=== PATIENT | female | born 1945 | race Caucasian/White ===

== ENCOUNTER 2023-12-16 07:52 | Emergency (ER) | payer MEDICARE, SELFPAY ==
[2023-12-16 07:52] VITALS: BMI 26.4
[2023-12-16 07:56] VITALS: BP 138/62
--- NOTE | 2023-12-16 08:29 | ED.GENMED ---
History of Present Illness
General
Chief Complaint: Cold/Flu/URI Symptoms
Source: patient
Exam Limitations: none
Time Seen by Provider: 12/16/23 08:13
Travel History
Have you had any contact with someone who has COVID-19?: No
Do you have any symptoms of coronavirus? Fever > 100 degrees, chills, cough, shortness of breath, sore throat, loss of taste or smell, muscle aches, or headache?: Yes
Symptoms:: cough fever
History of Present Illness
History of Present Illness:
78-year-old female with history of psoriasis on methotrexate, bladder cancer, hypertension presents complaining of 6 days worth of intermittent fatigue fevers cough ear pain sore throat. She is currently on 3 mg of methotrexate. She notes in the
morning she has to vomit up phlegm. She denies abdominal pain. She denies a rash. No known sick contacts. No other complaints at this time
Past History
Past History
ED Past Medical History: GERD, HTN, Hypercholesterolemia and Other (Psoriasis, irritable bowel syndrome)
ED Past Surgical History: Gynecological
Social History
Tobacco: Non-smoker
Phy Exam
Physical Exam
Physical Exam:
General: Well-appearing female no acute respiratory distress
HEENT: Normocephalic atraumatic posterior pharynx without erythema neck is supple. Right TM normal left TM erythematous with fluid. The medial part of the external auditory canal slightly erythematous as well
Heart: Regular rate and rhythm no murmurs
Lungs: Clear no wheeze or rales
Abdomen soft nontender nondistended no guarding rebound normal bowel sounds
Extremities: No cyanosis or edema
Skin is warm no rash
Course
Orders/Labs/Results
Orders:
Orders
12/16/23 08:26
CR Chest - 2 Views Urgent
Comment:
Reason For Exam: fever, cough
12/16/23 08:31
Acetaminophen [Tylenol] 650 mg PO NOW STA
12/16/23 09:24
COVID-19 Antigen Urgent
Source: Nasal Swab
Influenza A+B Rapid Molecular Urgent
[facility] Source: Nasal Swab
Specimen Description:
12/16/23 09:32
Complete Blood Count/With Diff Urgent
Comprehensive Metabolic Panel Urgent
Lactic Acid Q4H
Comment: CANCEL 2nd LACTIC ACID IF 1st LACTIC ACID IS LESS THAN 2
Blood Culture Q30M
[facility] Source: Blood/Venous
Specimen Description:
Blood Culture Q30M
[facility] Source: Blood/Venous
Specimen Description:
12/16/23 12:30
Lactic Acid Q4H
Comment: CANCEL 2nd LACTIC ACID IF 1st LACTIC ACID IS LESS THAN 2
Abnormal Lab Results
12/16/23
09:32
WBC 15.6 H 10^3/uL
(4.8-10.8)
RBC 3.24 L 10^6/uL
(4.20-5.40)
Hgb 10.3 L g/dL
(12.0-16.0)
Hct 30.0 L %
(37.0-47.0)
MCH 31.8 H pg
(27.0-31.0)
MPV 10.6 H fL
(7.4-10.4)
Abs Immat Gran (auto) 0.1 H 10^3/uL
(0-0.05)
Absolute Neuts (auto) 12.5 H 10^3/uL
(1.4-6.5)
Absolute Monos (auto) 1.4 H 10^3/uL
(0.1-0.6)
Immature Gran % 0.7 H %
(0-0.5)
Neutrophils % 79.7 H %
(42.2-75.2)
Lymphocytes % 9.8 L %
(20.5-51.1)
Carbon Dioxide 21 L mmol/L
(22-30)
BUN 35 H mg/dl
(7-17)
Creatinine 1.1 H mg/dL
(0.6-1.0)
Glucose 129 H mg/dl
(70-99)
12/16/23 09:32
12/16/23 09:32
Vital Signs
Initial and Last Documented VS:
Initial Vital Signs
Temp Pulse Resp BP Pulse Ox
100.5 F H 100 20 138/62 98
12/16/23 07:56 12/16/23 07:56 12/16/23 07:56 12/16/23 07:56 12/16/23 07:56
Last Documented Vital Signs
Temp Pulse Resp BP Pulse Ox
100.5 F H 82 28 117/54 92
12/16/23 07:56 12/16/23 10:00 12/16/23 10:00 12/16/23 10:00 12/16/23 10:00
MDM/Problems Addressed
Differential Diagnosis Includes:
Fever URI symptoms. Patient could have viral illness such as COVID or flu these tests are pending. She notes a cough. Check chest x-ray for pneumonia.
I reviewed prior records. She is on methotrexate for history of psoriasis. This complicates care she could be immunosuppressed.
*Critical Care Note
Total Time (30-74mins, 75-104mins- exclusive of procedures): Not Applicable
Update Note
Update Note:
Exam consistent with otitis media workup negative for COVID and flu but does demonstrate subtle early pneumonia in the left perihilar region. When awake patient's oxygen level as well. She drops to 91 or 92% while sleeping. White blood cell count
is elevated. Discussed with emergency room attending and had shared decision-making with the patient and regarding definitive treatment. Offered admission versus discharge with close follow-up if need be. Patient decided to go home. Will
initiate Augmentin for her pneumonia and otitis. Return precautions were given.
ED Attending Note
-
Portions of this chart may have been created with voice recognition software.� Occasional wrong word or��sound alike� substitutions may have occurred due to the inherent limitations of voice recognition software.
Discharge Plan
Departure
Patient Disposition: Home (Routine Discharge)
Date of Disposition: 12/16/23
Time of Disposition: 10:22
Patient with high blood pressure during this ER visit?: No
Discharge Problem:
Pneumonia
Instructions: Pneumonia
Prescriptions:
New
amoxicillin-pot clavulanate 875-125 mg tablet
1 tab PO BID Qty: 19 0RF
No Action
isosorbide dinitrate 10 MG tablet
10 mg PO BID
simvastatin 40 MG tablet
40 mg PO DAILY
methotrexate sodium 2.5 MG tablet
6 tab PO .TUES
levothyroxine 50 MCG tablet
50 mcg PO DAILY
folic acid 1 MG tablet
1 mg PO DAILY
esomeprazole magnesium [Nexium] 20 MG capsule,delayed release(DR/EC)
20 mg PO DAILY
olmesartan-hydrochlorothiazide 1 EACH tablet
1 ea PO DAILY
metoprolol tartrate 25 MG tablet
25 mg PO DAILY
oxycodone 10 MG tablet
5 mg PO Q8HPRN PRN (Reason: pain)
Cholecalciferol (Vitamin D3) [Vitamin D3] 50 MCG Capsule
50 mcg PO DAILY
cephalexin 500 MG capsule
500 mg PO QID 5 Days Qty: 19 0RF
aspirin 81 MG tablet,chewable
81 mg PO DAILY Qty: 0 0RF
Rx Instructions:
RESTART ON 01/09/22
amoxicillin-pot clavulanate 875-125 mg tablet
1 tab PO BID Qty: 14 0RF
Referrals:
NONE,* [Family Provider] -
Activity Restrictions/Additional Instructions:
Take antibiotic as directed. Please return here for any worsening symptoms, persistent fever increasing shortness of breath. Follow-up with family doctor otherwise
Interventions
Interventions:
*Risk Screen - Suicide Last Done: 12/16/23 07:56
*General Assessment Last Done: 12/16/23 07:56
*Neglect/Abuse Screening Last Done: 12/16/23 07:56
ED- Pulmonary Assessment Last Done: 12/16/23 10:04
Discharge Date and Time
Print Language: MAORI
[2023-12-16 09:35] VITALS: BP 121/49
[2023-12-16] MEDS: TYLENOL 650 MG PO (09:50)
[2023-12-16 10:00] VITALS: BP 117/54
[2023-12-16 10:00] LABS: Lactic Acid 0.8 mmol/L (0.7-2.0)
[2023-12-16 10:01] LABS: ALT (SGPT) 16 U/L (0-35); AST (SGOT) 22 U/L (14-36); Alkaline Phosphatase 99 U/L (38-126); Blood Urea Nitrogen 35 mg/dl (7-17); Calcium 9.4 mg/dl (8.4-10.2); Carbon Dioxide 21 mmol/L (22-30); Chloride 106 mmol/L (98-107); Estimated Creatinine Clearance 34 ml/min; Glucose 129 mg/dl (70-99); Potassium 3.8 mmol/L (3.5-5.1); Sodium 140 mmol/L (135-145); Total Bilirubin 1.1 mg/dl (0.2-1.3); Total Protein 6.5 g/dl (6.3-8.2)
[2023-12-16 10:02] LABS: % Basophils 0.4 % (0-2); % Eosinophils 0.4 % (0-6); % Immature Granulocytes 0.7 % (0-0.5); % Lymphocytes 9.8 % (20.5-51.1); % Neutrophils 79.7 % (42.2-75.2); Absolute Basophils 0.1 10^3/uL (0-0.2); Absolute Eosinophils 0.1 10^3/uL (0-0.7); Absolute Immature Granulocytes 0.1 10^3/uL (0-0.05); Absolute Lymphocytes 1.5 10^3/uL (1.2-3.4); Absolute Monocytes 1.4 10^3/uL (0.1-0.6); Absolute Neutrophils 12.5 10^3/uL (1.4-6.5); Hemoglobin 10.3 g/dL (12.0-16.0); Mean Corp Hgb Conc. 34.3 g/dL (33.0-37.0); Mean Corpuscular Hgb 31.8 pg (27.0-31.0); Mean Corpuscular Volume 92.6 fL (81.0-99.0); Mean Platelet Volume 10.6 fL (7.4-10.4); Nucleated Red Blood Cells % 0 %; Platelet Count 193 10^3/uL (130-400); Red Blood Cell Count 3.24 10^6/uL (4.20-5.40); Red Cell Dist. Width 14.1 % (11.5-14.5); White Blood Cell Count 15.6 10^3/uL (4.8-10.8)
[2023-12-16 10:03] LABS: COVID-19 Antigen Negative (Negative)
[2023-12-16] MEDS: AUGMENTIN 875 MG/125 MG 1 TABLET PO (10:52)
== END 2023-12-16 10:59 | disposition home or self-care (01) ==
LOC: EMR 07:52
PROVIDERS: Physician Assistant; EMERGENCY PHYSICIAN Emergency Medicine
DX: J18.9 Pneumonia, unspecified organism (principal); I10 Essential (primary) hypertension
CPT/HCPCS: 99284; 71046; 80053; 83605; 85025; 87040; 87502; 87811

== ENCOUNTER 2024-05-01 12:43 | Emergency (ER) | payer MEDICARE, SELFPAY ==
[2024-05-01 12:51] VITALS: BP 141/71
--- NOTE | 2024-05-01 15:02 | ED.GENMED ---
History of Present Illness
General
Chief Complaint: Musculo-Skeletal Complaint
Source: patient and spouse
Exam Limitations: none
Time Seen by Provider: 05/01/24 13:19
Nursing documentation reviewed up to this point in time: agreed with
History of Present Illness
History of Present Illness:
Patient is an 78-year-old female with history of psoriatic arthritis presenting to the emergency department for evaluation of right knee injury. Patient states approximately 2 weeks ago she was on her hands and knees cleaning the floor. She was
scooting backwards on the floor and she felt a pop in her right knee. Immediately following�she had significant pain in her right knee and states that her knee was swollen. She tried ice, elevation, Tylenol at home which initially seemed to be
improving pain and swelling. She states that over the past few days pain has persisted and is worse at night. Patient denies any repeat injuries to her right knee.
Patient denies any numbness/tingling in right lower extremity.
No other concerns today.
Past History
Past History
ED Past Medical History: GERD, HTN, Hypercholesterolemia and Other (Psoriasis, irritable bowel syndrome)
ED Past Surgical History: Gynecological
Social History
Tobacco: Non-smoker
Review of Systems
Review of Systems
Allergies reviewed?: Yes
All Other Systems: ROS reviewed and negative except as documented in HPI and ROS
Phy Exam
Physical Exam
Physical Exam:
Vitals: Patient's vital signs are stable. Afebrile
General: Patient is well appearing, no acute distress
Skin: Warm and dry, no rashes or lesions
Head: Normocephalic, atraumatic
Throat: Protecting airway
Neck: Normal ROM, no cervical spine tenderness
Cardiac: Regular rate
Pulm: No apparent respiratory distress
Abdomen: Nondistended
Extremities: Medial joint line tenderness of right knee. Mild tenderness of proximal tibia just below knee with no overlying erythema or ecchymoses. No right knee effusion. Patient is full ability to flex and extend right knee. Negative right
anterior drawer. No bony tenderness of right knee. Patient has no pain in bilateral hips with internal/external rotation.
Neuro: Grossly intact
Psychiatric: Normal affect.
Course
Orders/Labs/Results
Orders:
Orders
05/01/24 12:44
Knee, Right 4 or More Views [CR Knee- Right 4 Or More View*] Urgent
Comment:
Reason For Exam: pain
Vital Signs
Initial and Last Documented VS:
Initial Vital Signs
Temp Pulse Resp BP Pulse Ox
98.2 F 70 18 141/71 97
05/01/24 12:51 05/01/24 12:51 05/01/24 12:51 05/01/24 12:51 05/01/24 12:51
Last Documented Vital Signs
Temp Pulse Resp BP Pulse Ox
98.2 F 65 18 145/63 98
05/01/24 12:51 05/01/24 15:19 05/01/24 15:19 05/01/24 15:19 05/01/24 15:19
MDM/Problems Addressed
Differential Diagnosis Includes:
Not limited to: Knee strain, meniscal injury, patellar subluxation, doubt patellar fracture or tibial fracture
MDM/Problems Addressed:
78-year-old female presenting with right knee injury. Vital stable. Physical exam as above. X-ray with no evidence of acute fracture or dislocation. X-ray does show findings of osteoarthritis. Suspect symptoms likely related to ligamentous
injury of right knee and arthritis. Did consider knee immobilizer although feel patient will be at increased fall risk. Will place Azam wrap. Advise RICE. Patient ambulating without difficulty. Patient will follow-up with Ortho as she may need
further imaging. Return precautions discussed. Patient comfortable with plan. All questions answered. Case discussed with attending physician.
Chronic conditions affecting care:
Psoriatic arthritis, osteoarthritis
Acute Exacerbation and/or Progression of Chronic Illness:
N/A
*Radiology
Radiology exam reviewed: preliminary read by ED provider and radiology read reviewed
*Pulse Oximetry
Patient hypoxic: no
*EKG
Interpreted by ED Provider?: NA
*Shut Off Worker Interpretation
Rate: Shut Off Worker- N/A
*Critical Care Note
Total Time (30-74mins, 75-104mins- exclusive of procedures): Not Applicable
ED Attending Note
-
Portions of this chart may have been created with voice recognition software.� Occasional wrong word or��sound alike� substitutions may have occurred due to the inherent limitations of voice recognition software.
Discharge Plan
Departure
Patient Disposition: Home (Routine Discharge)
Date of Disposition: 05/01/24
Time of Disposition: 14:54
Patient with high blood pressure during this ER visit?: Yes
Condition: Good
Covid-19: Not Applicable
Discharge Problem:
Injury of ligament of right knee
Instructions: Ligament Injuries in the Knee (DC)
Prescriptions:
No Action
isosorbide dinitrate 10 MG tablet
10 mg PO BID
simvastatin 40 MG tablet
40 mg PO DAILY
methotrexate sodium 2.5 MG tablet
6 tab PO .TUES
levothyroxine 50 MCG tablet
50 mcg PO DAILY
folic acid 1 MG tablet
1 mg PO DAILY
esomeprazole magnesium [Nexium] 20 MG capsule,delayed release(DR/EC)
20 mg PO DAILY
olmesartan-hydrochlorothiazide 1 EACH tablet
1 ea PO DAILY
metoprolol tartrate 25 MG tablet
25 mg PO DAILY
oxycodone 10 MG tablet
5 mg PO Q8HPRN PRN (Reason: pain)
Cholecalciferol (Vitamin D3) [Vitamin D3] 50 MCG Capsule
50 mcg PO DAILY
cephalexin 500 MG capsule
500 mg PO QID 5 Days Qty: 19 0RF
aspirin 81 MG tablet,chewable
81 mg PO DAILY Qty: 0 0RF
Rx Instructions:
RESTART ON 01/09/22
amoxicillin-pot clavulanate 875-125 mg tablet
1 tab PO BID Qty: 14 0RF
amoxicillin-pot clavulanate 875-125 mg tablet
1 tab PO BID Qty: 19 0RF
Referrals:
Maximo Clay MD [Active] - Next open appointment
Oksana Rosado PA-C [Family Provider] - Follow up in 2-3 days
Activity Restrictions/Additional Instructions:
RETURN TO THE EMERGENCY DEPARTMENT WITH SIGNIFICANT SWELLING/BRUISING OF RIGHT KNEE, INTRACTABLE PAIN IN RIGHT KNEE, NUMBNESS/TINGLING IN RIGHT LOWER EXTREMITY, WORSENING IN CURRENT SYMPTOMS, OR ANY OTHER CONCERNS
-As discussed�you should keep right knee wrapped with Azam bandage. It is very important to ice and elevate right knee as often as possible. You can take Tylenol as needed for any discomfort. Limit activities that further aggravate right knee pain.
-You should follow-up with orthopedics for further evaluation/management. You may require additional imaging. You can contact your primary care for further evaluation, as well
Monitor your symptoms closely and return to the emergency department with any acute worsening/new symptoms
Interventions
Interventions:
*Risk Screen - Suicide Last Done: 05/01/24 13:10
*General Assessment Last Done: 05/01/24 13:10
*Neglect/Abuse Screening Last Done: 05/01/24 13:10
*ED COVID-19 Vaccine History Last Done: 05/01/24 13:10
*Nursing Disposition Last Done: 05/01/24 15:19
ED-Musculoskeletal Assessment Last Done: 05/01/24 13:10
Discharge Date and Time
Discharge Date/Time: 05/01/24 15:20
Print Language: LEBANESE
[2024-05-01 15:19] VITALS: BP 145/63
== END 2024-05-01 15:20 | disposition home or self-care (01) ==
LOC: EMR 12:43
PROVIDERS: EMERGENCY PHYSICIAN Student in an Organized Health Care Education/Training Program; FAMILY PHYSICIAN Physician Assistant
DX: S89.91XA Unspecified injury of right lower leg, initial encounter (principal); X50.1XXA Overexertion from prolonged static or awkward postures, initial encounter; I10 Essential (primary) hypertension
CPT/HCPCS: 99283; 73564

== ENCOUNTER → 2024-09-13 10:29 | Outpatient (REF) | payer MEDICARE, SELFPAY | LOC: RAD 10:29 | PROVIDERS: ATTENDING PHYSICIAN Internal Medicine; FAMILY PHYSICIAN Physician Assistant | DX: M81.0 Age-related osteoporosis without current pathological fracture (principal) | CPT/HCPCS: 77080; 77081 ==

== ENCOUNTER 2025-03-03 13:33 | Inpatient (IN) | payer MEDICARE, SELFPAY ==
[2025-03-02 14:28] VITALS: BP 152/80
[2025-03-02 14:43] LABS: Hematocrit 33.4 % (37.0-47.0); Hemoglobin 11.2 g/dL (12.0-16.0); Mean Corp Hgb Conc. 33.5 g/dL (33.0-37.0); Mean Corpuscular Volume 97.7 fL (81.0-99.0); Nucleated Red Blood Cells % 0 %; Platelet Count 192 10^3/uL (130-400); Red Cell Dist. Width 14.6 % (11.5-14.5)
--- NOTE | 2025-03-02 15:00 | ED.GENMED ---
History of Present Illness
General
Chief Complaint: Chest Pain
Time Seen by Provider: 03/02/25 14:50
Nursing documentation reviewed up to this point in time: agreed with
History of Present Illness
History of Present Illness:
79-year-old female presents to the ER for evaluation of feeling of shortness of breath along with pressure on her chest which has been present for the last week. Patient feels as though she cannot fully exhale. She also has noted more swelling
around her upper chest/neck in the last week or so although she believes it was related to positioning while sleeping. Patient denies fevers or chills. She has been eating and drinking without difficulty although she states that most food tastes
terrible recently. She denies peripheral edema. She states that she was recently taken off of her Plavix but no other recent change in her medications. Patient had an AR evaluated with cath within the last year but was reportedly in a vessel that
was not amenable to direct treatment. She had medication modification and has been compliant with her medicines. She denies prior personal history of congestive heart failure. She has not had any cough or cold symptoms. She is on long-term
methotrexate for her prior history of psoriasis. She also has a prior significant history of hypertension and GERD
Past History
Past History
ED Past Medical History: GERD, HTN, Hypercholesterolemia and Other (Psoriasis, irritable bowel syndrome)
ED Past Surgical History: Gynecological
Social History
Tobacco: Non-smoker
Review of Systems
Review of Systems
Allergies reviewed?: Yes
Phy Exam
Physical Exam
Physical Exam:
Patient is awake, alert, appears in no acute distress, generally tremulous, elderly, significant supraclavicular fat pads present bilaterally, no appreciable JVD given limitations of habitus, heart regular rate and rhythm without murmurs or ectopy,
lungs are clear to auscultation without wheezes rales or rhonchi, no crepitus or abnormal chest wall excursion noted, abdomen is soft, obese, nontender, extremities without edema, 2+ DP pulses present symmetric bilateral feet, GCS is 15
Scores
Heart Score for Chest Pain Patients
STEMI patient?: No
History: Moderately Suspicious
ECG: Normal
Age: >/= 65 years
Risk Factors: >/= 3 Risk Factors or History of CAD
Troponin: >1 - <3 x Normal Limit
Heart Score for Chest Pain Patients: 6
Heart Score Risk: 20.3% MACE over next 6 weeks
Course
Orders/Labs/Results
Orders:
Orders
03/02/25 14:25
Electrocardiogram (*1) Urgent
Reason for Study: Chest Pain
EKG- Treatment ONCE
03/02/25 14:36
Complete Blood Count/With Diff Urgent
Comprehensive Metabolic Panel Urgent
Pro-BNP [NT-proBNP] Urgent
Troponin I Urgent
03/02/25 14:53
PT/INR [Prothrombin Time] Urgent
03/02/25 16:19
Aspirin 325 mg PO NOW STA
03/02/25 17:23
CR Chest - 2 Views Urgent
Comment:
Reason For Exam: dyspnea
Abnormal Lab Results
03/02/25
14:36
RBC 3.42 L 10^6/uL
(4.20-5.40)
Hgb 11.2 L g/dL
(12.0-16.0)
Hct 33.4 L %
(37.0-47.0)
MCH 32.7 H pg
(27.0-31.0)
RDW 14.6 H %
(11.5-14.5)
Abs Immat Gran (auto) 0.1 H 10^3/uL
(0-0.05)
Absolute Monos (auto) 0.7 H 10^3/uL
(0.1-0.6)
Immature Gran % 0.6 H %
(0-0.5)
Chloride 111 H mmol/L
(98-107)
BUN 31 H mg/dl
(7-17)
Creatinine 1.3 H mg/dL
(0.6-1.0)
Glucose 123 H mg/dl
(70-99)
03/02/25 14:36
03/02/25 14:36
White blood count reassuring. Patient has history of anemia, today's hemoglobin is similar to prior from 12/16/2023
Vital Signs
Initial and Last Documented VS:
Initial Vital Signs
Temp Pulse Resp BP Pulse Ox
97.9 F 96 18 152/80 95
03/02/25 14:28 03/02/25 14:28 03/02/25 14:28 03/02/25 14:28 03/02/25 14:28
Last Documented Vital Signs
Temp Pulse Resp BP Pulse Ox
97.9 F 102 26 152/80 95
03/02/25 14:28 03/02/25 17:00 03/02/25 17:00 03/02/25 14:28 03/02/25 17:00
MDM/Problems Addressed
Differential Diagnosis Includes:
Differential diagnosis considered but not limited to angina with dyspnea as an anginal equivalent, CHF, pneumonia, anemia, arrhythmia along with other etiologies considered
Chronic conditions affecting care:
Psoriasis on immune modulating medication, hypertension, ACS
*Pulse Oximetry
SaO2: 96
Oxygen Mode of Delivery: Room air
Patient hypoxic: no
*EKG
Interpreted by ED Provider?: Yes (I did been reviewed and interpreted full EKG showing normal sinus rhythm, rate 97, left axis deviation, right bundle branch block, no ST elevation, this is an abnormal tracing, with new bundle branch block compared
to prior from 04/18/2023)
*Police Dispatcher Interpretation
Rate: normal (I independently viewed and interpreted rhythm strip showing normal sinus rhythm with right bundle branch block)
*Critical Care Note
Total Time (30-74mins, 75-104mins- exclusive of procedures): Not Applicable
Update Note
Update Note:
Patient given aspirin as dyspnea may be related to anginal equivalent. Troponin is slightly elevated. Labs otherwise are normal. I reviewed full patient presentation with the hospitalist accepts patient for admission for further ACS evaluation.
Chest x-ray was not ordered with initial workup. It has been ordered
ED Attending Note
-
Portions of this chart may have been created with voice recognition software.� Occasional wrong word or��sound alike� substitutions may have occurred due to the inherent limitations of voice recognition software.
Discharge Plan
Departure
Patient Disposition: Admit
Date of Disposition: 03/02/25
Time of Disposition: 16:34
Presentation/result/management discussed w/ accepting MD/DO: Hospitalist
Discharge Problem:
Elevated troponin I level, Dyspnea
Prescriptions:
No Action
simvastatin 40 MG tablet
40 mg PO DAILY
methotrexate sodium 2.5 MG tablet
6 tab PO .TUES
levothyroxine 50 MCG tablet
50 mcg PO DAILY
folic acid 1 MG tablet
1 mg PO DAILY
esomeprazole magnesium [Nexium] 20 MG capsule,delayed release(DR/EC)
20 mg PO DAILY
olmesartan-hydrochlorothiazide 1 EACH tablet
1 ea PO DAILY
metoprolol tartrate 25 MG tablet
25 mg PO DAILY
Cholecalciferol (Vitamin D3) [Vitamin D3] 50 MCG Capsule
50 mcg PO DAILY
aspirin 81 MG tablet,chewable
81 mg PO DAILY Qty: 0 0RF
Rx Instructions:
RESTART ON 01/09/22
isosorbide mononitrate 30 mg Tablet Extended Release 24 Hr
30 mg PO DAILY
Simponi 50 mg/0.5 mL Pen Injector
50 mg SC ORDERED RATE
Rx Instructions:
every 8 weeks
Referrals:
Oksana Rosado PA-C [Family Provider, Family Practice]
Interventions
Interventions:
*Risk Screen - Suicide Last Done: 03/02/25 14:28
*General Assessment Last Done: 03/02/25 14:28
*Neglect/Abuse Screening Last Done: 03/02/25 14:28
ED- Cardiac Assessment Last Done: 03/02/25 14:56
Discharge Date and Time
Print Language: ICELANDIC
[2025-03-02 15:10] LABS: ALT (SGPT) 28 U/L (0-35); AST (SGOT) 25 U/L (14-36); Albumin 4.5 g/dl (3.5-5.0); Alkaline Phosphatase 116 U/L (38-126); Blood Urea Nitrogen 31 mg/dl (7-17); Calcium 9.7 mg/dl (8.4-10.2); Carbon Dioxide 24 mmol/L (22-30); Chloride 111 mmol/L (98-107); Glucose 123 mg/dl (70-99); Potassium 4.1 mmol/L (3.5-5.1); Sodium 141 mmol/L (135-145); Total Protein 6.6 g/dl (6.3-8.2); eGFR 41.31
[2025-03-02 15:11] LABS: INR 1.00; PT 13.5 Sec (11.4-14.6)
[2025-03-02 15:21] LABS: Troponin I 0.025 ng/ml
[2025-03-02] MEDS: ASPIRIN 325 MG PO (16:32)
--- NOTE | 2025-03-02 17:29 | HPS.HSE ---
Family Physician
-
Family Physician: Oksana Rosado PA-C
Chief Complaint
-
Chest Pain
History of Present Illness
Patient is an 79 y/o female past medical history of coronary artery disease s/p stent, hypertension, hyperlipidemia, hypothyroidism, and psoriasis who presents with chest pain. Patient described an almost constant chest tightness for the past week.
She reports symptoms improve with rest but get significantly with activity. She reports increased dysnpea on exertion from her prior baseline. She notes sometimes the tightness radiates to the left shoulder. She currently takes low dose aspirin
and notes her Plavix was stopped about 3 months ago. She reports prior cardiac last year showed an occluded vessel that was too small to stent, and notes they are watching two other vessels that has stenosis but significant enough at that time to
warrant stenting.
Medical History
Past Medical History
Past Medical History: Reports Other
Additional Past Medical History:
Coronary Artery Disease s/p Stent
Essential Hypertension
Hyperlipidemia
Hypothyroidism
GERD
Irritable Bowel Syndrome
Plaque Psoriasis / Psoriatic Arthritis
Bladder Cancer s/p TURBT
Past Surgical History: Reports Other
Additional Past Surgical History:
Cardiac Stents
TURBT
Hysterectomy
Nasal Surgery
Ear Surgery
Social History
Tobacco: Former Smoker (Quit in 2010)
Alcohol: Occasional
Family History
Family History: Not pertinent
Allergies / Home Medications
Allergies reflects when Allergies were last updated in [employer].
Home Medications with original date entered in [employer]
Allergy/Medication List:
Allergies
Allergy/AdvReac Type Severity Reaction Status Date / Time
Iodinated Contrast Media Allergy Rash Verified 03/02/25 14:28
Home Medications
Cholecalciferol (Vitamin D3) [Vitamin D3] 50 mcg PO DAILY Supplement 12/31/21
esomeprazole magnesium 20 mg capsule,delayed release (Nexium) 20 mg PO DAILY Gastrointestinal issue 12/31/21
folic acid 1 mg tablet 1 mg PO DAILY Supplement 12/31/21
levothyroxine 50 mcg tablet 50 mcg PO DAILY Thyroid 12/31/21
methotrexate sodium 2.5 mg tablet 4 tab PO TU Autoimmune disorder 12/31/21
aspirin 81 mg chewable tablet 81 mg PO DAILY Blood clot prevention/tx ##0 01/05/22
atorvastatin 40 mg tablet 40 mg PO DAILY 03/02/25
golimumab 50 mg/0.5 mL subcutaneous pen injector (Simponi) 50 mg SC ORDERED RATE 03/02/25
isosorbide mononitrate 30 mg tablet,extended release 24 hr 30 mg PO DAILY DAILY 03/02/25
metoprolol succinate 25 mg tablet,extended release 24 hr 25 mg PO DAILY 03/02/25
olmesartan 20 mg-hydrochlorothiazide 12.5 mg tablet 1 tab PO DAILY 03/02/25
Review of Systems
-
A 12 point ROS was completed and negative except as noted: Yes
Constitutional: Denies Fever or Chills
Respiratory: Reports Trouble Breathing; Denies Cough
Cardiac: Reports See HPI
Abdomen/GI: Denies Abdominal Pain, Nausea or Vomiting
Physical Exam
Vital Signs
Vital Signs
Temp Pulse Resp BP Pulse Ox
97.9 F 102 26 152/80 95
03/02/25 14:28 03/02/25 17:00 03/02/25 17:00 03/02/25 14:28 03/02/25 17:00
Physical Exam
General: Comfortable and Conversant
HEENT: Anicteric and Moist mucous membranes
Respiratory: Clear and Non Labored Respirations
Cardiac: S1/S2 and Regular Rhythm
GI: Soft and Non Tender
Rectal: Deferred by Provider
Musculoskeletal: No Clubbing, No Cyanosis and No Edema
Skin: Warm and Dry
Neuro: Awake, Alert, Oriented and Nonfocal/grossly intact
Psych: Calm
Laboratory Results
-
08/03/25 14:36
03/02/25 14:36
Laboratory Results
PT 13.5 Sec (11.4-14.6) 03/02/25 14:53
INR 1.00 03/02/25 14:53
Total Bilirubin 1.0 mg/dl (0.2-1.3) 03/02/25 14:36
AST 25 U/L (14-36) 03/02/25 14:36
ALT 28 U/L (0-35) 03/02/25 14:36
Alkaline Phosphatase 116 U/L (38-126) 03/02/25 14:36
Troponin I 0.025 ng/ml 03/02/25 14:36
Data Reviewed
-
Lab Data: Labs Reviewed by me
Old Records: Reviewed
Impression/Plan
-
Chest Pain, patient is high risk given known coronary artery disease
-Consult Cardiology
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
-Continue aspirin
-Give dose of nitroglycerin SL now and monitor for response
-Continue to trend troponin and check serial ECG
Elevated Creatinine, unclear if acute vs chronic, but suspect more chronic
-Hold olmesartan / HCTZ for now
-Recheck creatinine in AM
Essential Hypertension
-Continue metoprolol
-Olmesartan / HCTZ on hold as above
Hyperlipidemia
-Continue atorvastatin
Hypothyroidism
-Continue levothyroxine
GERD
-Continue Protonix
Plaque Psoriasis / Psoriatic Arthritis
-Patient maintained on methotrexate and golimumab as outpatient
Hx Bladder Cancer s/p TURBT
DVT proph: SC Heparin
Code Status: Full Code
[2025-03-02 18:15] VITALS: BP 158/60
[2025-03-02 19:00] VITALS: BP 152/64
[2025-03-02 19:30] VITALS: BP 163/75; BMI 29.7
--- NOTE | 2025-03-02 19:33 | W.PN.UPDATE ---
Update Note
Progress Note Update
Patient seen independently.
Please see the PA note for full details
79 y/o woman with a past medical history of:
coronary artery disease s/p stent,
hypertension,
hyperlipidemia,
hypothyroidism,
psoriasis
presents with chest pain. She describes it as an almost constant chest tightness for the past week. The symptoms improve with rest but get significantly worse with activity. She has increased dyspnea on exertion from baseline. The tightness
radiates to the left shoulder. She takes low dose aspirin and her Plavix was stopped 3 months ago. A cardiac cath last year showed an occluded vessel that was too small to stent, and two other vessels had stenosis but not significant enough at
that time to warrant stenting.
Past Medical History
Coronary Artery Disease s/p Stent
Essential Hypertension
Hyperlipidemia
Hypothyroidism
GERD
Irritable Bowel Syndrome
Plaque Psoriasis / Psoriatic Arthritis
Bladder Cancer s/p TURBT
Cardiac Stents
TURBT
Hysterectomy
Nasal Surgery
Ear Surgery
Physical Exam
General: Comfortable
Respiratory: Clear
Cardiac: S1/S2
GI: Soft
Skin: Warm
Neuro: Awake, Alert
Psych: Calm
Impression/Plan
1. Chest Pain, with known coronary artery disease
Consult Cardiology
aspirin
nitroglycerin SL
troponin and serial ECG
2. Elevated Creatinine, unclear if acute vs chronic
Hold olmesartan / HCTZ
Recheck creatinine in AM
See PA note for full details on:
Essential Hypertension
Hyperlipidemia
Hypothyroidism
GERD
Plaque Psoriasis / Psoriatic Arthritis
[2025-03-02 22:12] LABS: Troponin I 0.046 ng/ml
[2025-03-02 23:00] VITALS: BP 145/92
[2025-03-02] MEDS: HEPARIN 5000 UNITS SC (23:56)
[2025-03-03] VITALS (15 sets, daily range): BP systolic 100–156; BP diastolic 56–80; BMI 29.6
[2025-03-03] MEDS: NITROSTAT (SUBLINGUAL) 0.4 MG SL (00:35)
[2025-03-03 01:13] LABS: Troponin I 0.046 ng/ml
[2025-03-03] MEDS: SYNTHROID 50 MCG PO (05:39)
[2025-03-03 06:56] LABS: Hematocrit 31.7 % (37.0-47.0); Hemoglobin 10.4 g/dL (12.0-16.0); Mean Corp Hgb Conc. 32.8 g/dL (33.0-37.0); Mean Corpuscular Volume 99.1 fL (81.0-99.0); Platelet Count 162 10^3/uL (130-400); Red Cell Dist. Width 14.8 % (11.5-14.5)
[2025-03-03] MEDS: PROTONIX 40 MG PO (07:36)
[2025-03-03] MEDS: LOW STRENGTH ASPIRIN 81 MG PO (07:36)
[2025-03-03] MEDS: LIPITOR 40 MG PO (07:37)
[2025-03-03] MEDS: IMDUR (EXTENDED RELEASE) 30 MG PO (07:37)
[2025-03-03] MEDS: TOPROL XL 25 MG PO (07:37)
[2025-03-03] MEDS: HEPARIN 5000 UNITS SC (07:37)
[2025-03-03 07:55] LABS: Blood Urea Nitrogen 29 mg/dl (7-17); Calcium 9.5 mg/dl (8.4-10.2); Carbon Dioxide 25 mmol/L (22-30); Chloride 109 mmol/L (98-107); Estimated Creatinine Clearance 38 ml/min; Glucose 100 mg/dl (70-99); HDL Cholesterol 45 mg/dl; LDL Cholesterol, Calculated 38 mg/dl; Sodium 143 mmol/L (135-145); Very Low Density Lipoprotein 59 mg/dl (0-30); eGFR 50.48
[2025-03-03 08:01] LABS: Potassium 4.0 mmol/L (3.5-5.1)
--- NOTE | 2025-03-03 08:40 | CON.CAR ---
Addendum entered and electronically signed by Danie Shaw MD 03/03/25 16:55:
I personally performed a history and physical exam of the patient and discussed management with the resident. I reviewed the resident's note and agree with the documented findings and plan of care HPI/CC with changes/additions as note below.
79 yo female with PMH of CAD, prior stenting 2010, prior MT, HTN is admitted with SOB/JUAREZ. She also describes a chest burning that she attributes to GERD. Exam with RRR, no murmurs, no edema. TnI 0.046 (peak). EKG: NSR, RBBB. Echo: EF 55-60%.
Cath report from [facility] reviewed. 06/2023. 60% prox LAD, which was not significant by FFR. Culprit was likely distally occluded OM2 (med mgmt, small vessel size).
# ACS/NSTEMI
-concern that patient's presentation is due to ACS with known prior 60% LAD lesion
-threat to life
-currently chest pain free
-ASA 324mg, heparin drip, with monitoring of labs and tele
-will plan for cath in AM
# HTN
-chronic: continue Toprol XL, imdur
Original Note:
Consultation
Consultation Request
Date/Time Consultation Requested: 03/02/25
Date/Time Consultation Performed: 03/03/25
Medical History
-
Chief Complaint: Chest tightness
History of Present Illness:
Patient is a 89-year-old female, with past medical history of essential hypertension, hiatal hernia, GERD, coronary artery disease s/p stent x 2 in 2010, she was on dual antiplatelet therapy last year, her Plavix was discontinued 3 months ago who
presents to the ER with complaint of worsening shortness of breath and chest tightness. She states that she was not feeling well for the last week, her reflux symptoms were getting worse and she was waking up late at night with burnings in the
epigastric region. In addition, she was having exertional shortness of breath and generalized tremors of the whole body. Initially, she was able to treat the symptoms at home with rest and Nexium. On Monday, she went to taoist and when she came
back she had shortness of breath, chest tightness which was radiating to the neck and left shoulder and she had generalized shaking of the body and she was brought to the hospital by her .
She also had lower back pain for the last few months which had limited her physical activity and she feels like that might have contributed to her weight gain.
She does not have much appetite, denies nausea, vomiting, diaphoresis or syncopal episode.
No history of DVT/blood clots and has never been on blood thinners and has had no recent viral illness
She does have psoriasis for which she uses methotrexate and golimumab. She is on levothyroxine 50 mcg daily for hypothyroidism and on Nexium for GERD/hiatal hernia.
Past Medical History
Past Medical History: CAD (s/p stent), GERD, HTN, Hypercholesterolemia, Hypothyroidism and Other (Irritable Bowel Syndrome Plaque Psoriasis / Psoriatic Arthritis Bladder Cancer s/p TURBT)
Past Surgical History: Other (Cardiac Stents TURBT Hysterectomy Nasal Surgery Ear Surgery)
Social History
Tobacco: Former Smoker (Quit in 2010)
Alcohol: Occasional (She has 1 glass of wine with dinner daily)
Drug: None
Personal:
Living: With Family
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
Family History
Family History: Reviewed & Not Pertinent
Allergies / Home Medications
Allergy/AdvReac Type Severity Reaction Status Date / Time
Iodinated Contrast Media Allergy Rash Verified 03/02/25 14:28
�Medication �Instructions �Recorded �Confirmed �Type
Cholecalciferol (Vitamin D3) 50 mcg PO DAILY Supplement 12/31/21 03/02/25 History
[Vitamin D3]
esomeprazole magnesium 20 mg 20 mg PO DAILY Gastrointestinal 12/31/21 03/02/25 History
capsule,delayed release (Nexium) issue
folic acid 1 mg tablet 1 mg PO DAILY Supplement 12/31/21 03/02/25 History
levothyroxine 50 mcg tablet 50 mcg PO DAILY Thyroid 12/31/21 03/02/25 History
methotrexate sodium 2.5 mg tablet 4 tab PO TU Autoimmune disorder 12/31/21 03/02/25 History
aspirin 81 mg chewable tablet 81 mg PO DAILY Blood clot 01/05/22 03/02/25 Rx
prevention/tx ##0
atorvastatin 40 mg tablet 40 mg PO DAILY 03/02/25 03/02/25 History
golimumab 50 mg/0.5 mL 50 mg SC ORDERED RATE 03/02/25 03/02/25 History
subcutaneous pen injector (Simponi)
isosorbide mononitrate 30 mg 30 mg PO DAILY DAILY 03/02/25 03/02/25 History
tablet,extended release 24 hr
metoprolol succinate 25 mg 25 mg PO DAILY 03/02/25 03/02/25 History
tablet,extended release 24 hr
olmesartan 20 1 tab PO DAILY 03/02/25 03/02/25 History
mg-hydrochlorothiazide 12.5 mg
tablet
Review of Systems
-
All other systems: Negative unless noted
Physical Exam
Vital Signs
Temp Pulse Resp BP Pulse Ox
97.7 F 72 18 125/80 95
03/03/25 07:15 03/03/25 07:37 03/03/25 07:15 03/03/25 07:37 03/03/25 07:15
Lab Results
03/03/25 06:37
03/03/25 06:37
Troponin I 0.046 ng/ml H* 03/03/25 00:28
Kjm-L-Owtoawviqfp Pept 152 pg/ml 03/02/25 14:36
Physical Exam
General: Well Developed, Comfortable and Other (Generalized shaking of her hands)
HEENT: Anicteric and Moist Mucous Membranes
Respiratory: Wheezes (Scattered wheezes in chest)
Cardiac: S1/S2 and Regular Rhythm; Negative Murmur, Rub, Peripheral Edema or JVD
GI: Soft, Non Tender and Normal Bowel Sounds
Musculoskeletal: No Clubbing, No Cyanosis and No Edema
Skin: Warm and Dry
Neuro: Awake and AO x 3
Psych: Calm
Impression / Plan
-
Impression
Patient is an 79-year-old female, petite, with generalized shaking of hands and arms, history of coronary artery disease s/p stent x 2, on methotrexate for psoriasis, on levothyroxine for hypothyroidism admitted with chest tightness
Right middle branch block
Essential hypertension
GERD
Hyperlipidemia
Psoriasis
Hypothyroidism
Assessment/plan
Exertional shortness of breath most likely multifactorial secondary to general deconditioning, methotrexate use, could be related to thyroid issues, associated reflux symptoms
Check TSH
Continue pantoprazole 40 mg daily
LVH based on voltage criteria-check echocardiogram
PE less likely -Wells score is 0
Patient hemodynamically stable for an aortic dissection/aneurysm, can check chest CT to confirm
Troponin levels could be elevated due to mismatch-trending down
If echocardiogram is normal, can check stress echocardiography to confirm it to be noncardiac chest pain
Pulmonary function test on outpatient basis
--- NOTE | 2025-03-03 08:52 | W.PN.HOSP.TC ---
Today's Communication/Plan
-
npo after midnight for cardiac cath in am.
Assessment / Plan
Assessment / Plan
Impression:
Patient is an 79 y/o female past medical history of coronary artery disease s/p stent, hypertension, hyperlipidemia, hypothyroidism, and psoriasis who presents with chest pain. Patient described an almost constant chest tightness for the past week.
She reports symptoms improve with rest but get significantly with activity. She reports increased dysnpea on exertion from her prior baseline. She notes sometimes the tightness radiates to the left shoulder. She currently takes low dose aspirin
and notes her Plavix was stopped about 3 months ago. She reports prior cardiac last year showed an occluded vessel that was too small to stent, and notes they are watching two other vessels that has stenosis but significant enough at that time to
warrant stenting.
Admitted under hospitalist service.
Cardiology consulted.
Echocardiogram done shows:
Normal biventricular size and systolic function without regional wall motion
abnormality. Estimated LVEF 55-60%.
No significant valve disease.
Cardiology commending cardiac cath.
Assessment/plan:
Chest Pain, patient is high risk given known coronary artery disease
-Consult Cardiology
-troponin 0.046
-Continue aspirin
-Give dose of nitroglycerin SL now and monitor for response
- serial ECG
03/03
Echocardiogram done shows:
Normal biventricular size and systolic function without regional wall motion
abnormality. Estimated LVEF 55-60%.
No significant valve disease.
Cardiology commending cardiac cath in am.
CKD stage 3b
-Hold olmesartan / HCTZ for now
Essential Hypertension
-Continue metoprolol
-Olmesartan / HCTZ on hold as above
Hyperlipidemia
-Continue atorvastatin
Hypothyroidism
-Continue levothyroxine
GERD
-Continue Protonix
Plaque Psoriasis / Psoriatic Arthritis
-Patient maintained on methotrexate and golimumab as outpatient
CODE STATUS: Full code
DVT prophylaxis: Heparin drip
Diet: cardiac, npo after midnight.
Disposition: npo after midnight for cardiac cath in am.
Total time spent on today's encounter was 65 minutes which included time spent in counseling the patient/family regarding diagnosis and treatment plan as listed above, goals of care, and symptom management. Case was discussed with nursing staff,
specialists, and care coordinators/case management. All labs and imaging personally reviewed by me. Remainder the time spent in detailed review of previous records, lab data, imaging, and other medical provider documentation.
Anticipated Discharge: 24 - 48 hours
Subjective/Interval History
-
Date of Service: March 03, 2025
Patient seen and examined at bedside, denies any chest pain or shortness of breath, no abdominal pain, no nausea, no vomiting, no diarrhea or constipation.
Plan for cardiac cath tomorrow.
Objective Data
-
Labs:
Laboratory Results
03/03/25
06:37
WBC 6.0
Hgb 10.4 L
Hct 31.7 L
Plt Count 162
Sodium 143
Potassium 4.0
Chloride 109 H
Carbon Dioxide 25
BUN 29 H
Creatinine 1.1 H
Glucose 100 H
Calcium 9.5
Vital Signs:
Vital Signs
Temp Pulse Resp BP Pulse Ox
97.7 F 72 18 125/80 95
03/03/25 07:15 03/03/25 07:37 03/03/25 07:15 03/03/25 07:37 03/03/25 07:15
I&O
03/02/25 03/03/25 03/04/25
06:59 06:59 06:59
Intake Total 480 / 480
Balance 480 / 480
Physical Exam
-
General: Well Developed, Well Nourished, No Apparent Distress and Comfortable
HEENT: Normocephalic, Atraumatic, Moist Mucous Membranes, No Ptosis, PERRLA and Nose Appears Normal
Respiratory: Clear to Auscultation and Non Labored Respirations
Cardiac: Regular Rhythm and S1/S2
Breast: Deferred by me
GI: Soft, Nontender, Nondistended and Normal Bowel Sounds
Genito-urinary: No Costovertebral Tender
Musculoskeletal: No Clubbing, No Cyanosis and No Edema
Skin: Warm
Neuro: Awake, Alert, Oriented, AO x 3 and No Motor Deficits
Psych: Calm
Data Reviewed
-
Diagnostic Radiology: Image personally visualized and interpreted and Report Reviewed by me
CT Scan: Image personally visualized and interpreted and Report Reviewed by me
Ultrasound: Image personally visualized and interpreted and Report Reviewed by me
MRI: Image personally visualized and interpreted and Report Reviewed by me
Medical Tests (Nuc Med, Echo etc): Image personally visualized and interpreted and Report Reviewed by me
Labs: Labs Reviewed by me
Old Records: Reviewed
[2025-03-03 09:03] LABS: Glycohemoglobin (HgbA1c) 6.3 % (4.0-5.6)
[2025-03-03 09:34] LABS: Troponin I 0.033 ng/ml
--- NOTE | 2025-03-03 10:20 | CM ---
Patient seen at bedside
IA completed
LAINEZ form explained & signed. In chart
Lives with in rancher home, 1 step to enter
laundry room in basement
PLOF: independent
DME: [employer]
Has had [facility] in past & outpatient cardiac rehab in past at [place]
Denies insecurities
PCP: Oksana Rosado
Pharmacy: [facility], [address], [place]
PLAN: home, no needs anticipated when stable
[2025-03-03] MEDS: LOW STRENGTH ASPIRIN 243 MG PO (12:20)
[2025-03-03 12:31] LABS: Hematocrit 31.7 % (37.0-47.0); Hemoglobin 10.5 g/dL (12.0-16.0); Mean Corp Hgb Conc. 33.1 g/dL (33.0-37.0); Mean Corpuscular Volume 98.8 fL (81.0-99.0); Platelet Count 181 10^3/uL (130-400); Red Cell Dist. Width 14.7 % (11.5-14.5)
[2025-03-03 12:40] LABS: APTT 24.0 Sec (23.4-35.0)
[2025-03-03] MEDS: HEPARIN 25000 UNITS/250 ML IV (14:07)
[2025-03-03] MEDS: BENADRYL 50 MG IV (15:53)
[2025-03-03] MEDS: SOLU-CORTEF 100 MG IV (15:53)
[2025-03-03 16:59] LABS: ACT-LR - POC 221 Seconds (116-155)
--- NOTE | 2025-03-03 17:42 | ITS.CL.PN ---
Final Armature Tester - Procedure Note
Procedure
Procedure Note:
CARDIAC CATHETERIZATION REPORT
Date of Procedure: 03/03/2025
Referring: Dr. Barber Shaw MD, PhD
Indication: NSTEMI
PROCEDURE(S)
1. left heart catheterization
2. coronary angiography
3. iFR LAD
ACCESS: 6F right radial artery (closure: radial band)
CATHETERS
1. 6F JR4
2. 6F JL3.5
3. 6F EBU3.5 guide
MODERATE SEDATION: 40 minutes of moderate sedation was utilized. An independent hospital medical assistant was present to assist with and help manage the patient's level of consciousness and physiologic status.
HEMODYNAMIC DATA
LV 127/11 (EDP 18) mmHg
AO 124/62 (mean 90) mmHg
CORONARY ANGIOGRAPHY
Dominance: Right
LM: Cloacal vessel without disease.
LAD: Large vessel giving rise to two small diagonal branches and wrapping around the apex. There is a 50% focal ostial stenosis and eccentric 50% proximal vessel stenosis.
LCx: Large vessel giving rise to a moderate caliber ramus/OM1, small OM2, moderate caliber OM3, and moderate caliber LPL branch. There is long segment up to 50% disease in the distal circumflex after the OM3 leading into the LPL branch. There are
otherwise mild luminal irregularities only.
RCA: Large vessel giving rise to a small RPDA and small RPL branch. There is a patent stent in the distal vessel and diffuse mild disease.
iFR of LAD
An Omni wire was flushed and zeroed outside the body and then advanced to the left main. The wire introducer was removed and the catheter flushed with saline, after which pressure of the wire and guide were normalized. The wire was advanced to the
mid LAD and iFR recorded at 0.98. On return to the left main, iFR appropriately normalized to ~1.0, confirming lack of wire drift.
RADIATION: dose 663 mGy; DAP 48 Gy*cm2; fluoroscopy time 6.6 min
CONCLUSIONS
1. Nonobstructive coronary artery disease in right dominant system
2. Mildly elevated LV filling pressure and no aortic stenosis on hemodynamic pullback.
RECOMMENDATIONS
1. Aggressive secondary prevention of coronary artery disease
2. Workup for etiology of patient's troponin elevation, which represents either a type II NSTEMI or non-ischemic myocardial injury
Copy to: Dr. Gaetano Vera MD (varnisher); PRERNA Castellanos (PCP)
Signed: Hans Millard MD, PhD
[2025-03-04 03:00] VITALS: BP 147/75
[2025-03-04 04:34] VITALS: BMI 29.4
[2025-03-04 06:00] VITALS: BMI 29.4
[2025-03-04] MEDS: SYNTHROID 50 MCG PO (06:30)
[2025-03-04 07:00] VITALS: BP 158/86
[2025-03-04 08:14] LABS: Hematocrit 33.9 % (37.0-47.0); Hemoglobin 11.1 g/dL (12.0-16.0); Mean Corp Hgb Conc. 32.7 g/dL (33.0-37.0); Mean Corpuscular Volume 98.8 fL (81.0-99.0); Platelet Count 187 10^3/uL (130-400); Red Cell Dist. Width 14.7 % (11.5-14.5)
[2025-03-04] MEDS: IMDUR (EXTENDED RELEASE) 30 MG PO (08:25)
[2025-03-04] MEDS: PROTONIX 40 MG PO (08:25)
[2025-03-04] MEDS: TOPROL XL 25 MG PO (08:25)
[2025-03-04] MEDS: LIPITOR 40 MG PO (08:26)
[2025-03-04] MEDS: LOW STRENGTH ASPIRIN 81 MG PO (08:27)
[2025-03-04 09:12] LABS: Blood Urea Nitrogen 28 mg/dl (7-17); Calcium 10.1 mg/dl (8.4-10.2); Carbon Dioxide 23 mmol/L (22-30); Chloride 111 mmol/L (98-107); Estimated Creatinine Clearance 41 ml/min; Glucose 95 mg/dl (70-99); Potassium 3.9 mmol/L (3.5-5.1); Sodium 143 mmol/L (135-145); eGFR 56.60
--- NOTE | 2025-03-04 10:06 | W.PN.HOSP.TC ---
Today's Communication/Plan
-
DC home
Assessment / Plan
Assessment / Plan
Impression:
Patient is an 79 y/o female past medical history of coronary artery disease s/p stent, hypertension, hyperlipidemia, hypothyroidism, and psoriasis who presents with chest pain. Patient described an almost constant chest tightness for the past week.
She reports symptoms improve with rest but get significantly with activity. She reports increased dysnpea on exertion from her prior baseline. She notes sometimes the tightness radiates to the left shoulder. She currently takes low dose aspirin
and notes her Plavix was stopped about 3 months ago. She reports prior cardiac last year showed an occluded vessel that was too small to stent, and notes they are watching two other vessels that has stenosis but significant enough at that time to
warrant stenting.
Admitted under hospitalist service.
Cardiology consulted.
Echocardiogram done shows:
Normal biventricular size and systolic function without regional wall motion
abnormality. Estimated LVEF 55-60%.
No significant valve disease.
Cardiology commending cardiac cath which revealed:
CONCLUSIONS
1. Nonobstructive coronary artery disease in right dominant system
2. Mildly elevated LV filling pressure and no aortic stenosis on hemodynamic pullback.
RECOMMENDATIONS
1. Aggressive secondary prevention of coronary artery disease
2. Workup for etiology of patient's troponin elevation, which represents either a type II NSTEMI or non-ischemic myocardial injury.
Assessment/plan:
Chest Pain, patient is high risk given known coronary artery disease
-Consult Cardiology
-troponin 0.046
-Continue aspirin
-Give dose of nitroglycerin SL now and monitor for response
- serial ECG
03/03
Echocardiogram done shows:
Normal biventricular size and systolic function without regional wall motion
abnormality. Estimated LVEF 55-60%.
No significant valve disease.
Cardiology commending cardiac cath.
03/04
Cardiology commending cardiac cath which revealed:
CONCLUSIONS
1. Nonobstructive coronary artery disease in right dominant system
2. Mildly elevated LV filling pressure and no aortic stenosis on hemodynamic pullback.
RECOMMENDATIONS
1. Aggressive secondary prevention of coronary artery disease
2. Workup for etiology of patient's troponin elevation, which represents either a type II NSTEMI or non-ischemic myocardial injury.
CKD stage 3b
-Hold olmesartan / HCTZ for now
Essential Hypertension
-Continue metoprolol
-Olmesartan / HCTZ on hold as above
Hyperlipidemia
-Continue atorvastatin
Hypothyroidism
-Continue levothyroxine
GERD
-Continue Protonix
Plaque Psoriasis / Psoriatic Arthritis
-Patient maintained on methotrexate and golimumab as outpatient
CODE STATUS: Full code
DVT prophylaxis: SCDs
Diet: cardiac, cardiac
Disposition:DC home
Total time spent on today's encounter was 65 minutes which included time spent in counseling the patient/family regarding diagnosis and treatment plan as listed above, goals of care, and symptom management. Case was discussed with nursing staff,
specialists, and care coordinators/case management. All labs and imaging personally reviewed by me. Remainder the time spent in detailed review of previous records, lab data, imaging, and other medical provider documentation.
Anticipated Discharge: Today
Subjective/Interval History
-
Date of Service: March 04, 2025
Patient seen and examined at bedside, denies any chest pain or shortness of breath, no abdominal pain, no nausea, no vomiting, no diarrhea or constipation.
Objective Data
-
Labs:
Laboratory Results
03/03/25 03/04/25
20:15 08:00
WBC 8.5
Hgb 11.1 L
Hct 33.9 L
Plt Count 187
APTT Cancelled
Sodium 143
Potassium 3.9
Chloride 111 H
Carbon Dioxide 23
BUN 28 H
Creatinine 1.0
Glucose 95
Calcium 10.1
Vital Signs:
Vital Signs
Temp Pulse Resp BP Pulse Ox
97.9 F 85 18 158/86 96
03/04/25 07:00 03/04/25 08:25 03/04/25 07:00 03/04/25 08:25 03/04/25 07:00
I&O
03/03/25 03/04/25 03/05/25
06:59 06:59 06:59
Intake Total 480 / 480 1560 / 1560
Balance 480 / 480 1560 / 1560
Physical Exam
-
General: Well Developed, Well Nourished, No Apparent Distress and Comfortable
HEENT: Normocephalic, Atraumatic, Moist Mucous Membranes, No Ptosis, PERRLA and Nose Appears Normal
Respiratory: Clear to Auscultation and Non Labored Respirations
Cardiac: Regular Rhythm and S1/S2
Breast: Deferred by me
GI: Soft, Nontender, Nondistended and Normal Bowel Sounds
Genito-urinary: No Costovertebral Tender
Musculoskeletal: No Clubbing, No Cyanosis and No Edema
Skin: Warm
Neuro: Awake, Alert, Oriented, AO x 3 and No Motor Deficits
Psych: Calm
Data Reviewed
-
Diagnostic Radiology: Image personally visualized and interpreted and Report Reviewed by me
CT Scan: Image personally visualized and interpreted and Report Reviewed by me
Ultrasound: Image personally visualized and interpreted and Report Reviewed by me
MRI: Image personally visualized and interpreted and Report Reviewed by me
Medical Tests (Nuc Med, Echo etc): Image personally visualized and interpreted and Report Reviewed by me
Labs: Labs Reviewed by me
Old Records: Reviewed
--- NOTE | 2025-03-04 10:07 | W.DCSUMMARY ---
Discharge Summary
Discharge Data
Date of Admission: 03/03/25
Date of Discharge: 03/04/25
Total time spent discharging patient (in min): 40
-
Pending Results: No
Hospital Course
Hospital course
Patient is an 79 y/o female past medical history of coronary artery disease s/p stent, hypertension, hyperlipidemia, hypothyroidism, and psoriasis who presents with chest pain. Patient described an almost constant chest tightness for the past week.
She reports symptoms improve with rest but get significantly with activity. She reports increased dysnpea on exertion from her prior baseline. She notes sometimes the tightness radiates to the left shoulder. She currently takes low dose aspirin
and notes her Plavix was stopped about 3 months ago. She reports prior cardiac last year showed an occluded vessel that was too small to stent, and notes they are watching two other vessels that has stenosis but significant enough at that time to
warrant stenting.
Admitted under hospitalist service.
Cardiology consulted.
Echocardiogram done shows:
Normal biventricular size and systolic function without regional wall motion
abnormality. Estimated LVEF 55-60%.
No significant valve disease.
Cardiology commending cardiac cath which revealed:
CONCLUSIONS
1. Nonobstructive coronary artery disease in right dominant system
2. Mildly elevated LV filling pressure and no aortic stenosis on hemodynamic pullback.
RECOMMENDATIONS
1. Aggressive secondary prevention of coronary artery disease
2. Workup for etiology of patient's troponin elevation, which represents either a type II NSTEMI or non-ischemic myocardial injury.
During hospitalization patient was treated from the following
Chest Pain, patient is high risk given known coronary artery disease
-Consult Cardiology
-troponin 0.046
-Continue aspirin
-Give dose of nitroglycerin SL now and monitor for response
- serial ECG
03/03
Echocardiogram done shows:
Normal biventricular size and systolic function without regional wall motion
abnormality. Estimated LVEF 55-60%.
No significant valve disease.
Cardiology commending cardiac cath.
03/04
Cardiology commending cardiac cath which revealed:
CONCLUSIONS
1. Nonobstructive coronary artery disease in right dominant system
2. Mildly elevated LV filling pressure and no aortic stenosis on hemodynamic pullback.
RECOMMENDATIONS
1. Aggressive secondary prevention of coronary artery disease
2. Workup for etiology of patient's troponin elevation, which represents either a type II NSTEMI or non-ischemic myocardial injury.
CKD stage 3b
-Hold olmesartan / HCTZ for now
Essential Hypertension
-Continue metoprolol
-Olmesartan / HCTZ on hold as above
Hyperlipidemia
-Continue atorvastatin
Hypothyroidism
-Continue levothyroxine
GERD
-Continue Protonix
Plaque Psoriasis / Psoriatic Arthritis
-Patient maintained on methotrexate and golimumab as outpatient
CODE STATUS: Full code
DVT prophylaxis: SCDs
Diet: cardiac, cardiac
Disposition:DC home
Total time spent on today's encounter was 40 minutes which included time spent in counseling the patient/family regarding diagnosis and treatment plan as listed above, goals of care, and symptom management. Case was discussed with nursing staff,
specialists, and care coordinators/case management. All labs and imaging personally reviewed by me. Remainder the time spent in detailed review of previous records, lab data, imaging, and other medical provider documentation.
Anticipated Discharge: Today
Discharge Plan
-
Patient Disposition: Home (Routine Discharge)
Discharge Diagnosis/Procedures: elevated troponin
S/P Cardiac catheterization
Diet: Low Cholesterol
Activity: With assistance and As tolerated
Driving Restrictions: No driving for 24 hours
Stand Alone Forms: DC Instructions- Cath/EP Lab
Referrals:
Oksana Rosado PA-C [Family Provider, Family Practice]
Gaetano Vera, DO [Non-Admitting Privileges, Cardiology] - in one to two weeks
Prescriptions:
Continued
methotrexate sodium 2.5 MG tablet
4 tab PO TU
levothyroxine 50 MCG tablet
50 mcg PO DAILY
folic acid 1 MG tablet
1 mg PO DAILY
esomeprazole magnesium [Nexium] 20 MG capsule,delayed release(DR/EC)
20 mg PO DAILY
Cholecalciferol (Vitamin D3) [Vitamin D3] 50 MCG Capsule
50 mcg PO DAILY
aspirin 81 MG tablet,chewable
81 mg PO DAILY Qty: 0 0RF
isosorbide mononitrate 30 mg Tablet Extended Release 24 Hr
30 mg PO DAILY
Simponi 50 mg/0.5 mL Pen Injector
50 mg SC ORDERED RATE
Rx Instructions:
every 8 weeks
atorvastatin 40 mg tablet
40 mg PO DAILY
metoprolol succinate 25 mg tablet extended release 24 hr
25 mg PO DAILY
olmesartan-hydrochlorothiazide 20-12.5 mg tablet
1 tab PO DAILY
Discharge Orders:
Discharge Patient (As Directed); Ordered 03/04/25
Ordered By: Kelly Loredo
Discharge Date and Time
Print Language: NEPALI
--- NOTE | 2025-03-04 10:33 | CM ---
Patient seen at bedside
IMM explained & signed. In chart
Declines VN
information given on residency clinic as she states she wants to get a new PCP
PLAN: Home, no needs
to transport
[2025-03-04 10:58] VITALS: BP 140/103
== END 2025-03-04 11:31 | disposition home or self-care (01) | DRG 287 ==
LOC: 3 WEST ACU 13:33
PROVIDERS: Nurse Practitioner; Nurse Practitioner Gerontology; Physician Assistant Medical; Student in an Organized Health Care Education/Training Program; ADMITTING PHYSICIAN Internal Medicine; ATTENDING PHYSICIAN General Practice; CONSULT PHYSICIAN Internal Medicine; EMERGENCY PHYSICIAN Emergency Medicine; FAMILY PHYSICIAN Physician Assistant
PROC: 4A033BC Measurement of Arterial Pressure, Coronary, Percutaneous Approach (ICD-10-PCS; 2025-03-03)
PROC: B2111ZZ Fluoroscopy of Multiple Coronary Arteries using Low Osmolar Contrast (ICD-10-PCS; 2025-03-03)
PROC: 4A023N7 Measurement of Cardiac Sampling and Pressure, Left Heart, Percutaneous Approach (ICD-10-PCS; 2025-03-03)
DX: R07.9 Chest pain, unspecified (principal); I5A Non-ischemic myocardial injury (non-traumatic); I25.10 Atherosclerotic heart disease of native coronary artery without angina pectoris; L40.0 Psoriasis vulgaris; L40.50 Arthropathic psoriasis, unspecified; E03.9 Hypothyroidism, unspecified; I12.9 Hypertensive chronic kidney disease with stage 1 through stage 4 chronic kidney disease, or unspecified chronic kidney disease; N18.32 Chronic kidney disease, stage 3b; K21.9 Gastro-esophageal reflux disease without esophagitis; E78.00 Pure hypercholesterolemia, unspecified; K44.9 Diaphragmatic hernia without obstruction or gangrene; K58.9 Irritable bowel syndrome, unspecified; D64.9 Anemia, unspecified; Z79.890 Hormone replacement therapy; Z79.82 Long term (current) use of aspirin; Z95.5 Presence of coronary angioplasty implant and graft; Z79.631 Long term (current) use of antimetabolite agent; Z87.891 Personal history of nicotine dependence; Z85.51 Personal history of malignant neoplasm of bladder; Z91.041 Radiographic dye allergy status; Z90.710 Acquired absence of both cervix and uterus
CPT/HCPCS: 71046; 80048; 80053; 80061; 83036; 83880; 84443; 84484; 85025; 85027; 85347; 85610; 85730; 93005; 93306; 93458; 93799; 99152; 99153; 99285; C1769; C1894; Q9967

== ENCOUNTER 2025-05-08 06:12 | Day surgery (SDC) | payer MEDICARE, SELFPAY ==
[2025-05-08] VITALS (11 sets, daily range): BP systolic 131–161; BP diastolic 66–101; BMI 29.4
[2025-05-08] MEDS: NORMOSOL-R/PLASMALYTE-A 1000 IV (09:40)
[2025-05-08] MEDS: SYRINGE NON-PUMP 50 ML IRRIG ×2 (12:04→12:05)
[2025-05-08] MEDS: SYRINGE NON-PUMP 50 MG IRRIG ×2 (12:04→12:05)
[2025-05-08] MEDS: DETROL LA 4 MG PO (12:35)
== END 2025-05-08 14:10 | disposition home or self-care (01) ==
LOC: SDS 06:12
PROVIDERS: ATTENDING PHYSICIAN Specialist
DX: D41.4 Neoplasm of uncertain behavior of bladder (principal)
CPT/HCPCS: 52234; 88307; J9201

== ENCOUNTER 2025-05-22 23:44 | Inpatient (IN) | payer MEDICARE, SELFPAY ==
[2025-05-22 18:14] VITALS: BP 153/82
[2025-05-22 18:47] LABS: Hematocrit 35.7 % (37.0-47.0); Hemoglobin 11.5 g/dL (12.0-16.0); Mean Corp Hgb Conc. 32.2 g/dL (33.0-37.0); Mean Corpuscular Volume 97.8 fL (81.0-99.0); Nucleated Red Blood Cells % 0 %; Platelet Count 180 10^3/uL (130-400); Red Cell Dist. Width 14.2 % (11.5-14.5)
[2025-05-22 18:49] LABS: Urine Character Clear (Clear)
[2025-05-22 19:06] LABS: ALT (SGPT) 36 U/L (0-35); AST (SGOT) 34 U/L (14-36); Albumin 4.4 g/dl (3.5-5.0); Alkaline Phosphatase 116 U/L (38-126); Blood Urea Nitrogen 21 mg/dl (7-17); Calcium 9.8 mg/dl (8.4-10.2); Carbon Dioxide 20 mmol/L (22-30); Chloride 105 mmol/L (98-107); Glucose 126 mg/dl (70-99); Lipase 153 U/L (23-300); Potassium 4.6 mmol/L (3.5-5.1); Sodium 135 mmol/L (135-145); Total Protein 7.0 g/dl (6.3-8.2); eGFR 50.48
--- NOTE | 2025-05-22 19:37 | ED.GENMED ---
History of Present Illness
<Maddi Rader PA-C - Last Filed: 05/23/25 00:14>
General
Chief Complaint: Abdominal Pain
Source: patient
Exam Limitations: none
Time Seen by Provider: 05/22/25 19:17
History of Present Illness
History of Present Illness:
79yoF with a history of coronary artery disease, hypertension, hyperlipidemia, psoriasis on methotrexate and Simponi, hypothyroidism, and diverticulosis presenting for evaluation of abdominal pain. Symptoms started yesterday with diarrhea. She
then developed pain in her left lower quadrant last night. Pain has been gradually worsening since then and she is now unable to move without pain. She has been experiencing chills. Temperature was 100.7 at home although she was afebrile in
triage and has not taken any antipyretics. She has had similar symptoms in the past with diverticulitis. She denies any nausea, vomiting, chest pain, shortness of breath worse than baseline, dysuria. Prior abdominal surgeries include a
hysterectomy. Of note, patient underwent a TURBT procedure on 05/08/[address] Waters.
Past History
<Maddi Rader PA-C - Last Filed: 05/23/25 00:14>
Past History
ED Past Medical History: GERD, HTN, Hypercholesterolemia and Other (Psoriasis, irritable bowel syndrome)
ED Past Surgical History: Gynecological
Social History
Tobacco: Non-smoker
Phy Exam
<Maddi Rader PA-C - Last Filed: 05/23/25 00:14>
General Physical Exam
General Presentation: well appearing and no apparent distress
General Skin: warm and dry
General Habitus: normal
General Mental: alert
ENT Exam
ENT Exam: normocephalic
Cardiovascular Exam
Cardiovascular Exam: regular rate/rhythm
Pulmonary Exam
Pulmonary Exam: lungs clear and no respiratory distress
Gastrointestinal Exam
Gastrointestinal Exam: soft, non distended and other (+Tenderness in LLQ with voluntary guarding)
Neurological Exam
Neurological Exam: alert
[place] Coma Scale
Eye Opening: Spontaneous
Verbal Response: Oriented
Motor Response: Obeys Commands
GCS Total Score: 15
Skin Exam
Skin Exam: normal color and warm/dry
Psychiatric Exam
Psychiatric Exam: normal mood/affect
Course
<Maddi Rader PA-C - Last Filed: 05/23/25 00:14>
Orders/Labs/Results
Orders:
Orders
05/22/25 18:28
Complete Blood Count/With Diff Urgent
Comprehensive Metabolic Panel Urgent
Lipase Urgent
Urinalysis Reflex To Culture Urgent
Date Specimen was Collected: 05/22/25
Time Specimen was Collected: 18:20
Urine Microscopic Reflex Cult Urgent
Urine Culture Urgent
ORA Source: U
Specimen Description:
Date Specimen was Collected: 05/22/25
Time Specimen was Collected: 18:20
05/22/25 19:36
CT Abd/pelvis W Iv Cont Urgent
Comment:
Reason For Exam: LLQ pain, fever
0.9% Sodium Chloride 500 ml [Nss] 500 ml IV BOLUS
Diphenhydramine [Benadryl] 50 mg IV NOW STA
Hydrocortisone Sod Succinate [Solu-Cortef] 200 mg IV NOW STA
05/22/25 19:41
Lactate Level [Lactic Acid] Urgent
05/22/25 22:32
Piperacillin/Tazo 4.5 Gram [Zosyn] 4.5 gram in 100 ml IV NOW
05/22/25 23:30
Admit/Transfer Patient As Directed
Co-Sign Provider:
Level of Care: Inpatient admission
Assign to:: Medical/Surgical
Physician / Group: robin
Diagnosis: diverticulitis
Reason for Hospitalization: diverticulitis
Expected length of stay greater than two midnights?: Yes
ELOS- Estimated Length of Stay in days: 3
I certify the patient meets the requirements for IP care: Yes
05/22/25 23:31
PRN Pain Medication Management As Directed
May give lesser potent ordered pain med per pt: Yes
preference::
Protocol:: Medication orders for pain may be administered in a
manner that supports deferring to patient preference
when the pt is:
- Requesting an ordered lesser potent pain medication.
Least to most potent pain medications are defined
as: acetaminophen < NSAID < tramadol < opioids
(morphine, oxycodone, hydromorphone).
- Requesting a lesser dose of the same medication IF
ORDERED.
- Requesting a less intrusive route of administration
if both routes are prescribed by the provider (PO <
IV).
05/22/25 23:33
Code Status As Directed
Resuscitation Status: Do not resuscitate
Reached after discussion with pt or family/Healthcare POA: Yes
DNR Bracelet Application ONCE
Abnormal Lab Results
05/22/25
18:28
WBC 15.5 H 10^3/uL
(4.8-10.8)
RBC 3.65 L 10^6/uL
(4.20-5.40)
Hgb 11.5 L g/dL
(12.0-16.0)
Hct 35.7 L %
(37.0-47.0)
MCH 31.5 H pg
(27.0-31.0)
MCHC 32.2 L g/dL
(33.0-37.0)
MPV 10.8 H fL
(7.4-10.4)
Abs Immat Gran (auto) 0.1 H 10^3/uL
(0-0.05)
Absolute Neuts (auto) 11.7 H 10^3/uL
(1.4-6.5)
Absolute Monos (auto) 1.2 H 10^3/uL
(0.1-0.6)
Neutrophils % 75.6 H %
(42.2-75.2)
Lymphocytes % 15.4 L %
(20.5-51.1)
Carbon Dioxide 20 L mmol/L
(22-30)
BUN 21 H mg/dl
(7-17)
Creatinine 1.1 H mg/dL
(0.6-1.0)
Glucose 126 H mg/dl
(70-99)
ALT 36 H U/L
(0-35)
Ur Occult Blood Reflex 3+ A
(Negative)
Leukocyte Esterase Rfl 1+ A
(Negative)
Urine RBC 7-10 A /HPF
(0-2)
Urine Bacteria (Reflex) Moderate A
(Negative)
Urine Albumin (Reflex) 2+ A
(Neg - Trace)
05/22/25 18:28
05/22/25 18:28
Vital Signs
Initial and Last Documented VS:
Initial Vital Signs
Temp Pulse Resp BP Pulse Ox
98.7 F 97 16 153/82 96
05/22/25 18:14 05/22/25 18:14 05/22/25 18:14 05/22/25 18:14 05/22/25 18:14
Last Documented Vital Signs
Temp Pulse Resp BP Pulse Ox
98.7 F 87 20 142/58 94
05/22/25 18:14 05/22/25 21:59 05/22/25 21:59 05/22/25 21:59 05/22/25 21:59
Rejilt;Kyrie Figueroa, DO - Last Filed: 05/22/25 23:11>
Orders/Labs/Results
Orders:
Orders
05/22/25 18:28
Complete Blood Count/With Diff Urgent
Comprehensive Metabolic Panel Urgent
Lipase Urgent
Urinalysis Reflex To Culture Urgent
Date Specimen was Collected: 05/22/25
Time Specimen was Collected: 18:20
Urine Microscopic Reflex Cult Urgent
Urine Culture Urgent
ORA Source: U
Specimen Description:
Date Specimen was Collected: 05/22/25
Time Specimen was Collected: 18:20
05/22/25 19:36
CT Abd/pelvis W Iv Cont Urgent
Comment:
Reason For Exam: LLQ pain, fever
0.9% Sodium Chloride 500 ml [Nss] 500 ml IV BOLUS
Diphenhydramine [Benadryl] 50 mg IV NOW STA
Hydrocortisone Sod Succinate [Solu-Cortef] 200 mg IV NOW STA
05/22/25 19:41
Lactate Level [Lactic Acid] Urgent
05/22/25 22:32
Piperacillin/Tazo 4.5 Gram [Zosyn] 4.5 gram in 100 ml IV NOW
05/22/25 23:30
Admit/Transfer Patient As Directed
Co-Sign Provider:
Level of Care: Inpatient admission
Assign to:: Medical/Surgical
Physician / Group: robin
Diagnosis: diverticulitis
Reason for Hospitalization: diverticulitis
Expected length of stay greater than two midnights?: Yes
ELOS- Estimated Length of Stay in days: 3
I certify the patient meets the requirements for IP care: Yes
05/22/25 23:31
PRN Pain Medication Management As Directed
May give lesser potent ordered pain med per pt: Yes
preference::
Protocol:: Medication orders for pain may be administered in a
manner that supports deferring to patient preference
when the pt is:
- Requesting an ordered lesser potent pain medication.
Least to most potent pain medications are defined
as: acetaminophen < NSAID < tramadol < opioids
(morphine, oxycodone, hydromorphone).
- Requesting a lesser dose of the same medication IF
ORDERED.
- Requesting a less intrusive route of administration
if both routes are prescribed by the provider (PO <
IV).
05/22/25 23:33
Code Status As Directed
Resuscitation Status: Do not resuscitate
Reached after discussion with pt or family/Healthcare POA: Yes
DNR Bracelet Application ONCE
Abnormal Lab Results
05/22/25
18:28
WBC 15.5 H 10^3/uL
(4.8-10.8)
RBC 3.65 L 10^6/uL
(4.20-5.40)
Hgb 11.5 L g/dL
(12.0-16.0)
Hct 35.7 L %
(37.0-47.0)
MCH 31.5 H pg
(27.0-31.0)
MCHC 32.2 L g/dL
(33.0-37.0)
MPV 10.8 H fL
(7.4-10.4)
Abs Immat Gran (auto) 0.1 H 10^3/uL
(0-0.05)
Absolute Neuts (auto) 11.7 H 10^3/uL
(1.4-6.5)
Absolute Monos (auto) 1.2 H 10^3/uL
(0.1-0.6)
Neutrophils % 75.6 H %
(42.2-75.2)
Lymphocytes % 15.4 L %
(20.5-51.1)
Carbon Dioxide 20 L mmol/L
(22-30)
BUN 21 H mg/dl
(7-17)
Creatinine 1.1 H mg/dL
(0.6-1.0)
Glucose 126 H mg/dl
(70-99)
ALT 36 H U/L
(0-35)
Ur Occult Blood Reflex 3+ A
(Negative)
Leukocyte Esterase Rfl 1+ A
(Negative)
Urine RBC 7-10 A /HPF
(0-2)
Urine Bacteria (Reflex) Moderate A
(Negative)
Urine Albumin (Reflex) 2+ A
(Neg - Trace)
05/22/25 18:28
05/22/25 18:28
Vital Signs
Initial and Last Documented VS:
Initial Vital Signs
Temp Pulse Resp BP Pulse Ox
98.7 F 97 16 153/82 96
05/22/25 18:14 05/22/25 18:14 05/22/25 18:14 05/22/25 18:14 05/22/25 18:14
Last Documented Vital Signs
Temp Pulse Resp BP Pulse Ox
98.7 F 87 20 142/58 94
05/22/25 18:14 05/22/25 21:59 05/22/25 21:59 05/22/25 21:59 05/22/25 21:59
<Maddi Rader PA-C - Last Filed: 05/23/25 00:14>
MDM/Problems Addressed
Differential Diagnosis Includes:
79yoF here with LLQ pain x 1 day. Had a fever of 100.7 at home although is afebrile on arrival and did not take any antipyretics. There is voluntary guarding on abdominal exam. Differential diagnosis includes: Diverticulitis, intra-abdominal
abscess, colitis, perforated viscus, kidney stone
Initial ED plan: Workup initiated in triage. Leukocytosis noted with a white count of 15.5. Creatinine at baseline. Will check CT abdomen. Patient premedicated with IV Benadryl and hydrocortisone given history of contrast allergy.
<Maddi Rader PA-C - Last Filed: 05/23/25 00:14>
*Pulse Oximetry
SaO2: 96
Oxygen Mode of Delivery: Room air
Patient hypoxic: no
*Critical Care Note
Total Time (30-74mins, 75-104mins- exclusive of procedures): Not Applicable
<Maddi Rader PA-C - Last Filed: 05/23/25 00:14>
Update Note
Update Note:
CT confirms acute diverticulitis. No evidence of abscess or perforation. Given immunocompromise state, will admit for IV antibiotics. Dose of IV Zosyn ordered and patient admitted for further management.
ED Attending Note
<Maddi Rader PA-C - Last Filed: 05/23/25 00:14>
-
Portions of this chart may have been created with voice recognition software.� Occasional wrong word or��sound alike� substitutions may have occurred due to the inherent limitations of voice recognition software.
<Kyrie Figueroa DO - Last Filed: 05/22/25 23:11>
ED Attending Note
Patient seen and examined by attending physician: Yes
ED Attending Note:
I reviewed and agree with history and treatment plan by Maddi Rader PA-C. My exam reveals left lower quadrant tenderness. Patient with sigmoid diverticulitis, immunocompromised. IV Zosyn given. Admit to hospitalist.
Discharge Plan
Departure
Patient Disposition: Admit
Date of Disposition: 05/22/25
Time of Disposition: 23:05
Presentation/result/management discussed w/ accepting MD/DO: Hospitalist
Discharge Problem:
Acute diverticulitis
Interventions
Interventions:
*Risk Screen - Suicide Last Done: 05/22/25 18:14
*Neglect/Abuse Screening Last Done: 05/22/25 18:14
*ED- Fall Risk Assessment Last Done: 05/22/25 18:14
UO-Mnnsyw-Usngzorjbj Assessment Last Done: 05/22/25 21:29
[2025-05-22 19:43] VITALS: BMI 27.4
[2025-05-22] MEDS: NSS 500 IV (19:44)
[2025-05-22] MEDS: SOLU-CORTEF 200 MG IV (20:17)
[2025-05-22] MEDS: BENADRYL 50 MG IV (20:18)
[2025-05-22 21:59] VITALS: BP 142/58
[2025-05-22] MEDS: ZOSYN 100 IV (22:51)
--- NOTE | 2025-05-22 23:08 | HPS.HSE ---
Family Physician
-
Family Physician: Oksana Rosado PA-C
Chief Complaint
-
left lower quadrant pain
History of Present Illness
79yoF with a history of coronary artery disease, hypertension, hyperlipidemia, psoriasis on methotrexate and Simponi, hypothyroidism, and diverticulosis,bladder cancer presenting for evaluation of left lower quadrant abdominal pain since yesterday.
patient stated multiple episodes of diarrhea. stated nausea but no vomiting. patient stated poor appetite. at times the pain was worse after eating. she complained of chills and fever of 100.8 at home. denied JUAREZ, dizzy or syncope. denied cough,
chest pain, congestion, sob. denied dysuria or hematuria but stated decreased urine output.
CT with diverticulitis. patient received a dose of Benadryl, Hydrocortisone, normal saline and Zosyn in ER. admitting for further management.
Medical History
Past Medical History
Past Medical History: Reports Other
Additional Past Medical History:
Hypothyroidism, hypertension, hyperlipidemia, bladder cancer, rheumatoid arthritis, osteoporosis, AL
Past Surgical History: Reports Other
Additional Past Surgical History:
Hysterectomy, cardiac stents, cataract surgery, TURBT
Social History
Tobacco: Non-smoker
Alcohol: Occasional
Drug: None
Personal:
Living: With Family
Family History
Family History: Not pertinent
Allergies / Home Medications
Allergies reflects when Allergies were last updated in [facility].
Home Medications with original date entered in [facility]
Allergy/Medication List:
Allergies
Allergy/AdvReac Type Severity Reaction Status Date / Time
Iodinated Contrast Media Allergy Rash Verified 05/22/25 18:19
Home Medications
esomeprazole magnesium 20 mg capsule,delayed release (Nexium) 20 mg PO DAILY Gastrointestinal issue 12/31/21
folic acid 1 mg tablet 1 mg PO TID Supplement 12/31/21
levothyroxine 50 mcg tablet 50 mcg PO DAILY Thyroid 12/31/21
aspirin 81 mg chewable tablet 81 mg PO DAILY Blood clot prevention/tx ##0 01/05/22
atorvastatin 40 mg tablet 40 mg PO HS 03/02/25
isosorbide mononitrate 30 mg tablet,extended release 24 hr 30 mg PO DAILY DAILY 03/02/25
metoprolol succinate 25 mg tablet,extended release 24 hr 25 mg PO DAILY 03/02/25
olmesartan 20 mg-hydrochlorothiazide 12.5 mg tablet 1 tab PO DAILY 03/02/25
cholecalciferol (vitamin D3) 50 mcg (2,000 unit) capsule (Vitamin D3) 50 mcg PO DAILY 05/07/25
golimumab 12.5 mg/mL intravenous solution (Simponi ARIA) 0 mg IV Q8W 05/07/25
methotrexate 2.5 mg/mL oral solution 2.5 mg PO QWEEK 05/08/25
Review of Systems
-
Constitutional: Reports No Symptoms
EENT: Reports No Symptoms
Respiratory: Reports No Symptoms
Cardiac: Reports No Symptoms
Abdomen/GI: Reports Abdominal Pain, Nausea and Diarrhea
: Reports No Symptoms
Musculoskeletal: Reports No Symptoms
Skin: Reports No Symptoms
Neurological: Reports No Symptoms
Endocrine: Reports No Symptoms
Hematologic/Lymphatic: Reports No Symptoms
Psych: Reports No Symptoms
Physical Exam
Vital Signs
Vital Signs
Temp Pulse Resp BP Pulse Ox
98.7 F 87 20 142/58 94
05/22/25 18:14 05/22/25 21:59 05/22/25 21:59 05/22/25 21:59 05/22/25 21:59
Physical Exam
General: Well Developed, Well Nourished and No Apparent Distress
HEENT: NormoCephalic, Moist mucous membranes and Atraumatic
Respiratory: Clear
Cardiac: S1/S2 and Regular Rhythm; No Murmur or Rub
GI: Soft, Non Distended, Normal Bowel Sounds and Tender (left lower quadrant); No Organomegaly
Rectal: Deferred by Provider
Musculoskeletal: No Clubbing, No Cyanosis and No Edema
Skin: No Rash
Neuro: AO x 3 and Nonfocal/grossly intact
Psych: Calm
Laboratory Results
-
05/22/25 18:28
05/22/25 18:28
Laboratory Results
Lactic Acid 1.0 mmol/L (0.7-2.0) 05/22/25 19:41
Total Bilirubin 1.0 mg/dl (0.2-1.3) 05/22/25 18:28
AST 34 U/L (14-36) 05/22/25 18:28
ALT 36 U/L (0-35) H 05/22/25 18:28
Alkaline Phosphatase 116 U/L (38-126) 05/22/25 18:28
Lipase 153 U/L (23-300) 05/22/25 18:28
Data Reviewed
-
CT Scan: Report Reviewed by me
Lab Data: Labs Reviewed by me
Impression/Plan
-
#Left lower quadrant pain concern for diverticulitis
- WBC 15.5
- IV Zosyn continued
- Clear liquid diet, advance as tolerated
-Tylenol prn for fever and pain
-fluids for hydration
-CT abdomen pelvis with impression of ACUTE DIVERTICULITIS in the PROXIMAL SIGMOID COLON.
2. Severe diverticulosis throughout the descending and sigmoid colon.
3. Mild colitis in the ascending and transverse colon.
4. Moderate diffuse hepatic steatosis.
5. Moderate-sized paraesophageal hiatal hernia.
6. Severe calcific atherosclerotic plaque in the abdominal aorta.
7. Severe calcific atherosclerotic plaque in the proximal left renal artery.
8. Severe lower lumbar facet joint arthrosis.
#Anemia of chronic disease
- Hemoglobin stable 11.5, no active bleeding
- Continue to monitor
#CKD stage 3b
-cr 1.1, ctm
Essential Hypertension
-Continue metoprolol
-hold olmesartan and hctz
-isosorbide continued
#Hyperlipidemia
-Continue atorvastatin
Hypothyroidism
-Continue levothyroxine
GERD
-Continue Protonix
#CAD with cardiac stents
-asa
#hxt of bladder cancer
Plaque Psoriasis / Psoriatic Arthritis
-Patient maintained on methotrexate and golimumab as outpatient
CODE STATUS: DNR
DVT prophylaxis: heparin sq
--- NOTE | 2025-05-22 23:33 | W.PN.UPDATE ---
Update Note
Progress Note Update
Patient seen in conjunction with nurse practitioner. I agree with the findings and physical. I concur with assessment and plan unless stated otherwise.
Briefly, this is a 79-year-old female with past medical history of psoriasis with psoriatic arthritis on Simponi and methotrexate, hypertension, hyperlipidemia, history of hypothyroid and diverticulosis as well as GERD presenting to the emergency
department with left lower quadrant pain and low-grade fevers 100.7 at home. She reports decreased appetite, denies vomiting or diarrhea.
The Emergency Department he was afebrile, blood pressure was 132/50 with a pulse of 87 and she was satting 94% on room air. Temp was 98.7.
She does have leukocytosis to 15.5 with otherwise normal hemoglobin and platelets. Electrolytes BUN and creatinine were in the normal range for with a blood glucose of 126. UA is contaminated.
CT of the abdomen and pelvis shows acute diverticulitis in the proximal sigmoid colon as well as severe diverticulosis throughout the descending and sigmoid colon.
Assessment and plan
Acute diverticulitis - no evidence of abscess or perforation
- Admit to MedSurg
- Clear liquid diet for now
- Continue IV Zosyn given immunosuppressive medication
- Pain control and antiemetics
- Gentle hydration with LR for now
Hypertension
- Hold HCTZ
- Continue olmesartan
CAD status post tenting
- Continue aspirin and statin
- Continue Imdur and metoprolol 25 mg p.o. daily
Psoriasis
- Continue his weekly methotrexate
DVT prophylaxis�lovenox subcu
CODE STATUS�DNR
[2025-05-23] MEDS: LR 1000 IV (03:10)
[2025-05-23] MEDS: ZOSYN 50 IV ×2 (05:19→12:52)
[2025-05-23] MEDS: SYNTHROID 50 MCG PO (05:19)
[2025-05-23 05:48] LABS: Hematocrit 30.6 % (37.0-47.0); Hemoglobin 9.8 g/dL (12.0-16.0); Mean Corp Hgb Conc. 32.0 g/dL (33.0-37.0); Mean Corpuscular Volume 97.8 fL (81.0-99.0); Platelet Count 165 10^3/uL (130-400); Red Cell Dist. Width 14.3 % (11.5-14.5)
[2025-05-23 06:13] LABS: Blood Urea Nitrogen 22 mg/dl (7-17); Calcium 9.1 mg/dl (8.4-10.2); Carbon Dioxide 24 mmol/L (22-30); Chloride 107 mmol/L (98-107); Estimated Creatinine Clearance 36 ml/min; Glucose 160 mg/dl (70-99); Potassium 4.1 mmol/L (3.5-5.1); Sodium 136 mmol/L (135-145); eGFR 50.48
[2025-05-23 07:35] VITALS: BMI 29.3
[2025-05-23] MEDS: LOW STRENGTH ASPIRIN 81 MG PO (07:35)
[2025-05-23] MEDS: PROTONIX 40 MG PO (07:35)
[2025-05-23] MEDS: VITAMIN D3 (cholecalciferol) 50 MCG PO (07:35)
[2025-05-23] MEDS: HEPARIN 5000 UNITS SC (07:35)
[2025-05-23] MEDS: TOPROL XL 25 MG PO (07:36)
[2025-05-23 07:40] VITALS: BP 122/67
[2025-05-23] MEDS: IMDUR (EXTENDED RELEASE) 30 MG PO (09:02)
--- NOTE | 2025-05-23 09:03 | W.PN.HOSP.TC ---
Today's Communication/Plan
-
Trial of low residue
Discharge on oral Augmentin if she is tolerating
Assessment / Plan
Assessment / Plan
HPI: 79yoF with a history of coronary artery disease, hypertension, hyperlipidemia, psoriasis on methotrexate and Simponi, hypothyroidism, and diverticulosis,bladder cancer presenting for evaluation of left lower quadrant abdominal pain since
yesterday. patient stated multiple episodes of diarrhea. stated nausea but no vomiting. patient stated poor appetite. at times the pain was worse after eating. she complained of chills and fever of 100.8 at home. denied JUAREZ, dizzy or syncope. denied
cough, chest pain, congestion, sob. denied dysuria or hematuria but stated decreased urine output.
CT with diverticulitis. patient received a dose of Benadryl, Hydrocortisone, normal saline and Zosyn in ER. admitting for further management.
#Left lower quadrant pain concern for diverticulitis
CT abdomen pelvis with impression of ACUTE DIVERTICULITIS in the PROXIMAL SIGMOID COLON
Currently on IV Zosyn, doing well on clear liquid diet
She is pain-free
Advance to low residue, discharged on oral Augmentin to complete a 7-day course if she tolerates
#Anemia of chronic disease
Monitor hemoglobin
#CKD stage 3b
Creatinine stable at 1.1
Essential Hypertension
-Continue metoprolol
-resume olmesartan and hctz upon discharge
-isosorbide continued
#Hyperlipidemia
-Continue atorvastatin
Hypothyroidism
-Continue levothyroxine
GERD
-Continue Protonix
#CAD with cardiac stents
-asa
#Hepatic steatosis
#Hiatal hernia
#hxt of bladder cancer
Plaque Psoriasis / Psoriatic Arthritis
-Patient maintained on methotrexate and golimumab as outpatient
DVT prophylaxis�subcu heparin
DNR
Physical Exam
General: No acute distress
HEENT: Normocephalic, Atraumatic, EOMI, MMM
Respiratory: Clear to Auscultation bilaterally
Cardiac: Normal S1/S2, Regular Rate and Rhythm
GI: Soft, Nontender, Nondistended, Normal Bowel Sounds
Extremities: No Clubbing, Cyanosis, or Edema
Neuro: Nonfocal/Grossly Intact
Anticipated Discharge: Today
Subjective/Interval History
-
Date of Service: May 23, 2025
Patient reports feeling better. Her abdominal pain has resolved. No nausea, no vomiting. No stool since admission. No fever.
Objective Data
-
Labs:
Laboratory Results
05/23/25
05:35
WBC 10.3
Hgb 9.8 L
Hct 30.6 L
Plt Count 165
Sodium 136
Potassium 4.1
Chloride 107
Carbon Dioxide 24
BUN 22 H
Creatinine 1.1 H
Glucose 160 H
Calcium 9.1
Vital Signs:
Vital Signs
Temp Pulse Resp BP Pulse Ox
97.6 F 73 18 122/67 95
05/23/25 07:40 05/23/25 07:40 05/23/25 07:40 05/23/25 07:40 05/23/25 07:40
I&O
05/22/25 05/23/25 05/24/25
06:59 06:59 06:59
Intake Total 310 / 310
Balance 310 / 310
--- NOTE | 2025-05-23 09:32 | PTCARENOTE ---
Receive pt from ED via stretcher approx 8:00am. Pt AAOX3. IVFs infusing without difficulty. Patient denies pain. Call licea within reach. Plan of care ongoing.
[2025-05-23 10:22] LABS: C-Reactive Protein 78.40 mg/L (0.0-10.00)
--- NOTE | 2025-05-23 15:19 | CM ---
Alert awake oriented patient who lives with her Mina in a1 story home with 0 steps to enter.She is independent in driving and in all activities of daily living.Offered VN she declined. She has a cane .
Never had VN/SNF
Pharmacy [facility]
PCP Dr Kwasi Anguiano
PLAN Home no needs
[2025-05-23 15:28] VITALS: BP 118/55
[2025-05-23] MEDS: AUGMENTIN 875 MG/125 MG 1 TABLET PO (16:01)
--- NOTE | 2025-05-23 16:05 | W.DCSUMMARY ---
Discharge Summary
Discharge Data
Date of Admission: 05/22/25
Date of Discharge: 05/23/25
-
Pending Results: No
Hospital Course
Discharge diagnosis:
Acute diverticulitis
Acute left lower quadrant pain
Anemia of chronic disease
Stage IIIb chronic kidney disease
Essential hypertension
Hepatic steatosis
Paraesophageal hiatal hernia
Recurrent bladder cancer status postsurgery
Psoriasis on methotrexate and Simponi
Consults: None
CT abdomen and pelvis:
1. ACUTE DIVERTICULITIS in the PROXIMAL SIGMOID COLON.
2. Severe diverticulosis throughout the descending and sigmoid colon.
3. Mild colitis in the ascending and transverse colon.
4. Moderate diffuse hepatic steatosis.
5. Moderate-sized paraesophageal hiatal hernia.
6. Severe calcific atherosclerotic plaque in the abdominal aorta.
7. Severe calcific atherosclerotic plaque in the proximal left renal artery.
8. Severe lower lumbar facet joint arthrosis.
Hospital course:
79-year-old female with a past medical history of coronary artery disease, hypertension, hyperlipidemia, psoriasis on methotrexate and Simponi, hypothyroidism, diverticulosis, and bladder cancer who presented with acute left lower quadrant abdominal
pain, and was found to have acute diverticulitis. Patient was treated with bowel rest, IV fluids, and IV Zosyn. By the next day, her abdominal pain resolved. She tolerated a low residue diet. She did not have any recurrence of abdominal pain.
She is medically stable for discharge on Augmentin to complete a 7-day course. She needs to follow-up with her PCP in 1 week.
Disposition: Home self-care
Discharge planning: Required 35 minutes
Discharge Plan
-
Patient Disposition: Home (Routine Discharge)
Discharge Diagnosis/Procedures: Acute diverticulitis
Condition: Good
Diet: Low Fat and Low Cholesterol
Activity: As tolerated
Driving Restrictions: As prior to admission
Activity Restrictions/Additional Instructions:
Please take laxatives as needed, take your antibiotics as directed, and follow-up with your PCP in 1 week.
Instructions: Diverticulitis (DC)
Referrals:
Oksana Rosado PA-C [Family Provider, [facility]] - in one week
Prescriptions:
New
amoxicillin-pot clavulanate 875-125 mg Tablet
1 tab PO Q12 7 Days Qty: 14 0RF
polyethylene glycol 3350 17 gram/dose powder
17 g PO DAILY PRN (Reason: Constipation) Qty: 510 0RF
Continued
levothyroxine 50 MCG tablet
50 mcg PO DAILY
folic acid 1 MG tablet
1 mg PO TID
esomeprazole magnesium [Nexium] 20 MG capsule,delayed release(DR/EC)
20 mg PO DAILY
aspirin 81 MG tablet,chewable
81 mg PO DAILY Qty: 0 0RF
isosorbide mononitrate 30 mg Tablet Extended Release 24 Hr
30 mg PO DAILY
atorvastatin 40 mg tablet
40 mg PO HS
metoprolol succinate 25 mg tablet extended release 24 hr
25 mg PO DAILY
olmesartan-hydrochlorothiazide 20-12.5 mg tablet
1 tab PO DAILY
cholecalciferol (vitamin D3) [Vitamin D3] 50 mcg (2,000 unit) Capsule
50 mcg PO DAILY
Simponi ARIA 12.5 mg/mL Solution
0 mg IV Q8W
Patient Comments:
pt unsure of dosage
methotrexate 2.5 mg/mL Solution
2.5 mg PO QWEEK
Discharge Orders:
Discharge Patient (As Directed); Ordered 05/23/25
Ordered By: Lawrence Mejia
Discharge Date and Time
Discharge Date/Time: 05/23/25 16:47
Print Language: DIVEHI
== END 2025-05-23 16:47 | disposition home or self-care (01) | DRG 392 ==
LOC: 4 EAST ACU 23:44
PROVIDERS: Emergency Medicine; Physician Assistant; Registered Nurse; ADMITTING PHYSICIAN Internal Medicine; ATTENDING PHYSICIAN Family Medicine; EMERGENCY PHYSICIAN Emergency Medicine; FAMILY PHYSICIAN Physician Assistant
DX: K57.32 Diverticulitis of large intestine without perforation or abscess without bleeding (principal); D84.9 Immunodeficiency, unspecified; E03.9 Hypothyroidism, unspecified; I25.10 Atherosclerotic heart disease of native coronary artery without angina pectoris; E78.00 Pure hypercholesterolemia, unspecified; L40.50 Arthropathic psoriasis, unspecified; K21.9 Gastro-esophageal reflux disease without esophagitis; D63.8 Anemia in other chronic diseases classified elsewhere; M47.816 Spondylosis without myelopathy or radiculopathy, lumbar region; K44.9 Diaphragmatic hernia without obstruction or gangrene; K76.0 Fatty (change of) liver, not elsewhere classified; K58.9 Irritable bowel syndrome, unspecified; I12.9 Hypertensive chronic kidney disease with stage 1 through stage 4 chronic kidney disease, or unspecified chronic kidney disease; L40.0 Psoriasis vulgaris; M81.0 Age-related osteoporosis without current pathological fracture; M06.9 Rheumatoid arthritis, unspecified; N18.32 Chronic kidney disease, stage 3b; Z66 Do not resuscitate; I25.2 Old myocardial infarction; Z79.631 Long term (current) use of antimetabolite agent; Z90.710 Acquired absence of both cervix and uterus; Z85.51 Personal history of malignant neoplasm of bladder; Z95.5 Presence of coronary angioplasty implant and graft; Z79.899 Other long term (current) drug therapy; Z91.041 Radiographic dye allergy status; Z79.890 Hormone replacement therapy; Z79.82 Long term (current) use of aspirin
CPT/HCPCS: 74177; 80048; 80053; 81003; 81015; 83605; 83690; 85025; 85027; 86140; 87086; 96361; 96365; 96375; 99284; Q9967